=== PATIENT | female | born 1970 | race Hispanic/Latino ===

== ENCOUNTER 2017-05-04 14:44 | Inpatient (IN) | payer MEDICAID, SELFPAY ==
[2017-05-04 16:39] VITALS: BMI 28.2
[2017-05-04] MEDS ORDERED: Acetaminophen 325 MG TAB PO PRN (17:03)
[2017-05-04] MEDS ORDERED: Ondansetron ODT 4 MG TAB SL PRN (17:03)
[2017-05-04] MEDS ORDERED: Ondansetron HCl/PF 4 MG/2 ML Vial IVP PRN ×2 (17:03→17:16)
[2017-05-04] MEDS ORDERED: Dextrose 5% in Water 1,000 ML IV PRN (17:16)
[2017-05-04] MEDS ORDERED: Dextrose 50% Abboject 50 ML SYRINGE SLOW IVP PRN (17:16)
[2017-05-04] MEDS ORDERED: Ondansetron ODT 4 MG TAB PO PRN (17:16)
[2017-05-04] MEDS ORDERED: cloNIDine HCl 0.1 MG TAB PO PRN (17:16)
[2017-05-04] MEDS ORDERED: Acetaminophen 500 MG TAB PO PRN (17:16)
[2017-05-04] MEDS: Sodium Chloride 0.9% 1,000 ML IV SCH (17:51)
[2017-05-04] MEDS: HumaLOG 300 UNITS/3 ML VIAL SC PRN ×2 (17:51→20:57)
[2017-05-04] MEDS: Vancomycin HCl 1 GM in Premix Bag 1 BAG IVPB SCH (17:52)
[2017-05-04] MEDS: HYDROcodone/Acetaminophen 5/325 mg Tablet PO PRN (17:52)
[2017-05-04] MEDS: cefTRIAXone\\ROCEPHIN 2 GM in Sodium Chloride 0.9% 100 ML IVPB SCH (20:57)
[2017-05-04] MEDS: Famotidine 20 MG TAB PO SCH (20:57)
--- NOTE | 2017-05-04 23:23 | HP ---
DATE OF ADMISSION: 05/04/2017 PRIMARY CARE PROVIDER: Shahriar gilmore. CHIEF COMPLAINT: Left foot pain. HISTORY OF PRESENT ILLNESS: This is a 46-year-old female who presents to [facility] complaining of increasing left foot and lower leg swelling, redness, and pain over the last week. The patient states she stumped her left great toe at home on a hard object and disru pted the nail. The patient states that the nail was loose, so she pulled it off her great toe and n oted increasing swelling and redness over the next few days. The patient did not take any specific medications and hoped that the swelling and redness would dissipate on its own. The patient noted r edness migrating to her lower extremity with some blistering formation on the presley region. The ji ent denies any remote similar incidents in the past and denied any history of foot ulcerations. The patient does admit to a history of diabetes mellitus diagnosed approximately 10 years prior to this evaluation and treated with herbal remedies at home. The patient is unsure of her last tetanus but feels it is greater than 10 years. The patient does admit to associated chills and fever but did n ot quantitate this. The patient states that most of the pain is in the lower leg and sparing of the foot. In the emergency room, the patient underwent general evaluation including plain radiographs showing evidence of bony erosion of the distal tuft of the left great toe phalanx. The patient rece ived IV vancomycin and Zosyn as well as one liter of normal saline and 4 units of Humulin R. PAST MEDICAL HISTORY: 1. Diabetes mellitus type 2 suspected x10 years, treated with herbal remedies. 2. Hyperlipidemia, untreated. PAST SURGICAL HISTORY: Reviewed and negative. CURRENT MEDICATIONS: Herbal supplements, type and dose unknown. ALLERGIES: No known drug allergies. FAMILY HISTORY: No inheritable diseases per the patient report. SOCIAL HISTORY: Resides in [place], [place], formerly working with a [employer] farm. No current alcohol, tobacco, or illicit drug use. REVIEW OF SYSTEMS: The following complete review of systems was otherwise negative except as stated as per HPI: Constitutional: Weight loss or gain, ability to conduct usual activities. Skin: Rash, itching. Eyes: Double vision, pain. ENT/Mouth: Nose bleeding, neck stiffness, pain, tenderness. Cardiovascular: Palpitations, dyspnea on exertion, orthopnea. Respiratory: Shortness of breath, wheezing, cough, hemoptysis, fever, or night sweats. Gastrointestinal: Poor appetite, abdominal pain, heartburn, nausea, vomiting, constipation, or diar andres. Genitourinary: Urgency, frequency, dysuria, nocturia. Musculoskeletal: Pain, swelling. Neurologic/Psychiatric: Anxiety, depression. Allergy/Immunologic: Skin rash, bleeding tendency. PHYSICAL EXAMINATION: VITAL SIGNS: On admission, blood pressure 115/80, pulse 99, respiratory rate 16, temperature 98.2 d egrees Fahrenheit, O2 saturation 96% on room air. GENERAL APPEARANCE: This is a 46-year-old female, Luxembourgish speaking only, alert, responsive , in no acute distress. HEENT: Pupils are equal, round, and reactive to light and accommodation. Extraocular muscles are i ntact. No scleral icterus, no conjunctival injection. Nares patent. OP is clear. NECK: Supple, no cervical adenopathy, no thyromegaly, no carotid bruits, no JVD appreciated. Cervi oscar spine is with full active and passive range of motion. CHEST: Lungs are clear to auscultation bilaterally. CARDIOVASCULAR: S1, S2, without noted murmur. ABDOMEN: Obese, soft, nontender, nondistended. Bowel sounds are positive in all four quadrants. T here is no hepatosplenomegaly, no abdominal bruits, no rebound or guarding appreciated. EXTREMITIES: Left lower extremity with erythema to the lower third of the presley anteriorly extending into the dorsum of the foot. Clusters of ecchymosis and blistering with eruption noted on the ante rior presley. Positive edema. Positive calor and tenderness to palpation of the foot and left lower e xtremity. Pulses are diminished bilaterally at the dorsalis pedis, posterior tibial, and popliteal arteries. Left great toe with edema with nonblanchable white patch at the distal aspect of the phal anx. Positive tenderness to palpation. Lack of nail noted. NEUROLOGIC: Cranial nerves II through XII are grossly intact. No focal or lateralizing signs appre ciated. PERTINENT LABORATORY AND X-RAY FINDINGS: Sodium 133, potassium 4.6, chloride 99, CO2 of 23, BUN 15, creatinine 0.72, estimated GFR 86, glucose 380, last hemoglobin A1c on record 13.8, 05/2015. Calci um 9.4. LFTs within normal limits. Albumin 3.4. CBC showed a white blood cell count of 14.4, hemo globin 14, hematocrit 41, platelet count 370 with 77% neutrophils. Three views of the left foot samir ed 05/04/2017 showed osseous erosion involving the distal tuft of the left great toe consistent with osteomyelitis. ASSESSMENT AND PLAN: 1. Left lower extremity foot and great toe cellulitis with associated osteomyelitis. The patient w ill be admitted to the medical floor. We will continue vancomycin 1 gram IV q. 12 hours with additi onal Rocephin 2 grams IV q. 24 hours. We will consult General Surgery Service in the a.m. for evalu ation and consideration of surgical intervention. Consult Wound Care Service for local care. Pain control as clinically indicated. Update tetanus status prior to discharge. 2. Diabetes mellitus type 2, uncontrolled. We will check A1c level in the a.m. Insulin sliding sc milton moderate. ADA diet. 3. Leukocytosis with neutrophilia secondary to #1. We will repeat CBC in the a.m. and monitor clin ically with IV antibiotic therapy. 4. Prophylaxis. Sequential compression devices held due to left lower extremity edema. Lovenox 40 mg subcutaneously q. 24 hours. Tetanus vaccination prior to discharge. 5. CODE STATUS IS FULL. Surrogate medical decision maker is the patient's spouse, Freddie Nugetn.
[2017-05-05 04:41] LABS: Hemoglobin A1c 12.3 % (4.0-6.0)
[2017-05-05 05:11] LABS: Anion Gap 9 mmol/L (10-20); BUN (Urea Nitrogen) 9 mg/dL (7.0-18.7); Calc. Creatinine Clearance 129 mL/min (70-130); Calcium 8.2 mg/dL (7.8-10.44); Carbon Dioxide 24 mmol/L (22-29); Chloride 103 mmol/L (98-107); Estimated GFR-MDRD Greater than 90
[2017-05-05 05:16] LABS: Band 1 % (5-11); Hematocrit 36.4 % (36.0-47.0); Mean Platelet Volume 8.4 fL (7.4-10.4); Neutrophil 71 % (42-75); Red Blood Cell (RBC) Count 3.95 mill/uL (4.20-5.40); White Blood Cell (WBC) Count 15.7 thou/uL (4.8-10.8)
[2017-05-05] MEDS: HYDROcodone/Acetaminophen 5/325 mg Tablet PO PRN (05:18)
[2017-05-05] MEDS: Sodium Chloride 0.9% 1,000 ML IV SCH ×2 (05:19→14:36)
[2017-05-05] MEDS: Vancomycin HCl 1 GM in Premix Bag 1 BAG IVPB SCH ×2 (05:19→17:05)
[2017-05-05] MEDS: Famotidine 20 MG TAB PO SCH ×2 (07:37→20:22)
[2017-05-05] MEDS: Enoxaparin Sodium 40 MG/0.4 ML SYRINGE SC SCH (07:37)
[2017-05-05] MEDS ORDERED: Mag-Al 1200 mg/1200 mg/30 ML UDCUP PO PRN (07:55)
[2017-05-05] MEDS ORDERED: Diabetic Tussin 200 MG/10 ML UDCUP PO PRN (07:55)
[2017-05-05] MEDS ORDERED: Temazepam 15 MG CAP PO PRN (07:55)
[2017-05-05] MEDS ORDERED: Senokot 8.6 MG TAB PO PRN (07:55)
[2017-05-05] MEDS ORDERED: Sodium Chloride 0.65% Nasal 44 ML BOT EA NARE PRN (07:55)
[2017-05-05] MEDS ORDERED: Eucerin (Mineral Oil/Petrolatum,White) 30 gm Jar TOP PRN (07:55)
[2017-05-05] MEDS ORDERED: Loperamide HCl 2 MG CAP PO PRN (07:55)
[2017-05-05] MEDS ORDERED: Acetaminophen 325 MG TAB PO PRN (07:55)
[2017-05-05] MEDS ORDERED: Loratadine 10 MG TAB PO PRN (07:55)
[2017-05-05] MEDS ORDERED: Milk Of Magnesia 30 ML UDCUP PO PRN (07:55)
[2017-05-05] MEDS ORDERED: Artificial Tears 18 DROP/0.9 ML EA EYE PRN (07:55)
[2017-05-05] MEDS ORDERED: glyBURIDE 5 MG TAB PO SCH (08:00)
--- NOTE | 2017-05-05 12:41 | PDOC.PN ---
- Subjective Encounter Start Date: 05/05/17 Encounter Start Time: 10:10 -: old records requested/rev Patient seen and examined. No new complaints. No overnight events - Objective Resuscitation Status: Resuscitation Status FULL:Full Resuscitation MAR Reviewed: Yes Vital Signs & Weight: Vital Signs (12 hours) Temp Pulse Resp BP Pulse Ox 05/05/17 08:24 98.6 F 77 18 109/71 94 L 05/05/17 08:00 98.6 F 90 18 05/05/17 04:47 98.6 F 90 18 119/74 91 L Weight Admit Weight 154 lb 4.8 oz Weight 154 lb 4.8 oz I&O: 05/04/17 05/05/17 05/06/17 06:59 06:59 06:59 Intake Total 1643 Balance 1643 Result Diagrams: 05/05/17 03:21 05/05/17 03:21 Additional Labs: Accuchecks 05/05/17 05/05/17 05/04/17 12:02 04:47 20:50 POC Glucose 224 H 226 H 266 H 05/04/17 17:46 POC Glucose 293 H Phys Exam - Physical Examination Constitutional: NAD HEENT: PERRLA, moist MMs, sclera anicteric Neck: no JVD, supple Respiratory: no wheezing, no rales, no rhonchi Cardiovascular: RRR, no significant murmur, no rub Gastrointestinal: soft, non-tender, no distention, positive bowel sounds Musculoskeletal: no edema, pulses present left leg cellulitis with abscess Neurological: non-focal, normal sensation, moves all 4 limbs Psychiatric: normal affect, A&O x 3 Skin: no rash, normal turgor Dx/Plan (1) Cellulitis of left leg Code(s): L03.116 - CELLULITIS OF LEFT LOWER LIMB Status: Acute (2) Sepsis Code(s): A41.9 - SEPSIS, UNSPECIFIED ORGANISM Status: Acute (3) Diabetes type 2, controlled Code(s): E11.9 - TYPE 2 DIABETES MELLITUS WITHOUT COMPLICATIONS Status: Chronic - Plan cont current plan of care, continue antibiotics * will start metformin and glyburide for diabetes * continue vancomycin and rocephin * medication reviewed as below * medically stable with current treatment * symptomatic treatment * pain control * surgeon consulted. Review of Systems - Review of Systems ENT: negative: Ear Pain, Ear Discharge, Nose Pain, Nose Discharge, Nose Congestion, Mouth Pain, Mouth Swelling, Throat Pain, Throat Swelling, Other Respiratory: negative: Cough, Dry, Shortness of Breath, Hemoptysis, SOB with Excertion, Pleuritic Pain, Sputum, Wheezing Cardiovascular: negative: Chest Pain, Palpitations, Orthopnea, Paroxysmal Noc. Dyspnea, Edema, Light Headedness, Other Gastrointestinal: negative: Nausea, Vomiting, Abdominal Pain, Diarrhea, Constipation, Melena, Hematochezia, Other Genitourinary: negative: Dysuria, Frequency, Incontinence, Hematuria, Retention , Other Musculoskeletal: Leg Pain. negative: Neck Pain, Shoulder Pain, Arm Pain, Back Pain, Hand Pain, Foot Pain, Other Skin: negative: Rash, Lesions, Ronnie, Bruising, Other - Medications/Allergies Allergies/Adverse Reactions: Allergies Allergy/AdvReac Type Severity Reaction Status Date / Time No Known Allergies Allergy Verified 05/04/17 16:32 Medications: Current Medications Acetaminophen (Tylenol) 650 mg PO Q4H PRN PRN Reason: Headache/Fever or Mild Pain Hydrocodone Bitart/Acetaminophen ([place] 5/325) 1 tab PO Q4H PRN PRN Reason: Moderate Pain (4-6) Last Admin: 05/05/17 05:18 Dose: 1 tab Al Hydroxide/Mg Hydroxide (Maalox) 15 ml PO Q4H PRN PRN Reason: Heartburn or Indigestion Artificial Tears (Tears Naturale) 0 drop EA EYE PRN PRN PRN Reason: Dry Eyes Clonidine HCl (Catapres) 0.1 mg PO Q4H PRN PRN Reason: Systolic BP > 180 Dextrose/Water (Dextrose 50%) 25 gm SLOW IVP PRN PRN PRN Reason: Hypoglycemia Enoxaparin Sodium (Lovenox) 40 mg SC 0900 [facility] Last Admin: 05/05/17 07:37 Dose: Not Given Famotidine (Pepcid) 20 mg PO BID [facility] Last Admin: 05/05/17 07:37 Dose: Not Given Glucagon (Glucagon) 1 mg IM PRN PRN PRN Reason: Hypoglycemia Glyburide (Diabeta) 5 mg PO QAM-[facility] Guaifenesin (Robitussin Sf) 200 mg PO Q4H PRN PRN Reason: Cough Hydralazine HCl (Apresoline) 10 mg SLOW IVP Q4H PRN PRN Reason: Systolic BP > 180 Dextrose/Water (D5w) 1,000 mls @ 0 mls/hr IV .Q0M PRN; As Directed PRN Reason: Hypoglycemia Sodium Chloride (Normal Saline 0.9%) 1,000 mls @ 100 mls/hr IV .Q10H [facility] Last Admin: 05/05/17 05:19 Dose: 1,000 mls Vancomycin HCl 1 gm/ Device 200 mls @ 200 mls/hr IVPB 0600,1800 [facility] Last Admin: 05/05/17 05:19 Dose: 200 mls Ceftriaxone Sodium 2 gm/ (Sodium Chloride) 100 mls @ 200 mls/hr IVPB Q24HR [facility] Last Admin: 05/04/17 20:57 Dose: 100 mls Insulin Human Lispro (Humalog) 0 units SC .MODERATE SLIDING SC PRN PRN Reason: Moderate Correctional Scale Last Admin: 05/04/17 17:51 Dose: 6 unit Insulin Human Lispro (Humalog) 0 units SC .BEDTIME SLIDING SC PRN PRN Reason: Bedtime Correctional Scale Last Admin: 05/04/17 20:57 Dose: 3 unit Loperamide HCl (Imodium) 2 mg PO PRN PRN PRN Reason: Diarrhea/Loose Stools Loratadine (Claritin) 10 mg PO DAILYPRN PRN PRN Reason: Sinus Symptoms Magnesium Hydroxide (Milk Of Magnesium) 30 ml PO DAILYPRN PRN PRN Reason: Constipation Metformin HCl (Glucophage) 1,000 mg PO BID-[facility] Mineral Oil/White Petrolatum (Eucerin Cream) 0 gm TOP BIDPRN PRN PRN Reason: Dry Skin Morphine Sulfate (Morphine Sulfate) 4 mg SLOW IVP Q4H PRN PRN Reason: Severe Pain (7-10) Ondansetron HCl (Zofran Odt) 4 mg PO Q6H PRN PRN Reason: Nausea/Vomiting Ondansetron HCl (Zofran) 4 mg IVP Q6H PRN PRN Reason: Nausea/Vomiting Senna (Senokot) 2 tab PO HSPRN PRN PRN Reason: Constipation Sodium Chloride ([place] Nasal [place] 0.65%) 0 ml EA NARE QIDPRN PRN PRN Reason: Nasal Congestion Temazepam (Restoril) 15 mg PO HSPRN PRN PRN Reason: Insomnia
--- NOTE | 2017-05-05 15:44 | HP ---
HISTORY OF PRESENT ILLNESS: Ms. Arlyn Nugent is a 46-year-old female who lives in [place] the [employer]. She injured her left great toe on some furniture, had nail problems, rem avril that herself using her fingernails and has developed an infection extending to her anterior ank le and lower leg, admitted by hospitalist, placed on vancomycin and Zosyn. Patient is a non-diabeti c, but treats her disease holistically without medications. Hemoglobin A1c on admission was 12.3. Renal function is normal as noted above on vancomycin and Zosyn. Patient had an x-ray of her left f oot, noting osteomyelitis of the distal phalanx. Cultures obtained blood negative to date. Culture s from her toe, blood cultures negative to date. On admission, glucose was 293. ALLERGIES: None. TOBACCO: None. ALCOHOL: None. MEDICATIONS: None. PAST SURGICAL HISTORY: Noncontributory. PAST MEDICAL HISTORY: Noncontributory. REVIEW OF SYSTEMS: Ten-point noncontributory. Kazakh speaking only, chief payroll clerk was used. PHYSICAL EXAMINATION: VITAL SIGNS: Height 5 feet, weighs 254 pounds. BMI 28, temperature 98.6, pulse 77 and blood pressu re 109/71. HEAD, EYES, EARS, NOSE AND THROAT: Unremarkable. LUNGS: Clear to auscultation. CARDIAC: Regular rate and rhythm without murmur or gallop. ABDOMEN: Soft and nontender. No masses. EXTREMITIES: Palpable femoral, popliteal pedal pulses bilaterally. Hair on her toes and feet. The left great toe is markedly swollen, the great toenail is gone. On compression of the great toe, th ere is pus exuding from the medial aspect through multiple punctate openings. Over the dorsum of he r ankle and extending up the lower third of her leg above the ankle, there is cellulitis and indurat ion. There are multiple blisters, one of which has purulent material beneath it. There is necrotic soft tissue beneath eroded blister above the ankle. There is no significant fluctuance appreciated . LABORATORY DATA: Sodium 132, potassium 3.9, BUN 9, creatinine 0.59, GFR greater than 90, glucose 22 4 today and hemoglobin A1c 12.3. White count 15 and hemoglobin 12. ASSESSMENT AND PLAN: 1. Diabetic infection, left great toe. We would recommend amputation of left great toe through the proximal phalanx. We will arrange [facility]. Physical therapy consult for weight bear is tolerating the left foot. She is n.p.o. tod ay. Plan amputation of the left great toe and debridement of blisters of the left leg as indicated. She understands the risks and benefits and consents. 2. Diabetes mellitus, treated holistically, noncompliant.
[2017-05-05] MEDS: HumaLOG 300 UNITS/3 ML VIAL SC PRN ×2 (17:09→20:22)
[2017-05-05] MEDS: cefTRIAXone\\ROCEPHIN 2 GM in Sodium Chloride 0.9% 100 ML IVPB SCH (20:22)
[2017-05-06] MEDS: Sodium Chloride 0.9% 1,000 ML IV SCH ×2 (04:39→06:34)
[2017-05-06 05:34] LABS: #Eosinphils 0.1 thou/uL (0.0-0.7); #Lymphocytes 2.2 thou/uL (1.20-3.40); #Monocytes 1.1 thou/uL (0.11-0.59); #Neutrophils 8.5 thou/uL (1.40-6.50); %Basophils 0.1 % (0.0-1.0); %Eosinophils 1.1 % (0.0-10.0); %Lymphocytes 18.7 % (21.0-51.0); Hematocrit 41.2 % (36.0-47.0); Mean Platelet Volume 7.9 fL (7.4-10.4); Red Blood Cell (RBC) Count 4.49 mill/uL (4.20-5.40)
[2017-05-06 05:56] LABS: ALT (SGPT) 15 U/L (8-55); AST (SGOT) 18 U/L (5-34); Alkaline Phosphatase 116 U/L (40-150); Anion Gap 8 mmol/L (10-20); BUN (Urea Nitrogen) 6 mg/dL (7.0-18.7); Bilirubin, Total 0.4 mg/dL (0.2-1.2); Calc. Creatinine Clearance 121 mL/min (70-130); Calcium 8.5 mg/dL (7.8-10.44); Carbon Dioxide 27 mmol/L (22-29); Chloride 102 mmol/L (98-107); Estimated GFR-MDRD Greater than 90; Protein, Total 6.8 g/dL (6.0-8.3)
[2017-05-06 05:57] LABS: Vancomycin, Trough 4.5 ug/mL
--- NOTE | 2017-05-06 06:17 | EKG ---
Test Reason : PREOP Blood Pressure : / mmHG Vent. Rate : 098 BPM Atrial Rate : 098 BPM P-R Int : 128 ms QRS Dur : 070 ms QT Int : 344 ms P-R-T Axes : 033 -01 007 degrees QTc Int : 439 ms Normal sinus rhythm Normal ECG No previous ECGs available Confirmed by JOSETTE SARKAR ([id number]) on 05/06/2017 6:16:59 AM Referred By: LORENZO Confirmed By:JOSETTE SARKAR
[2017-05-06] MEDS: Vancomycin HCl 1 GM in Premix Bag 1 BAG IVPB SCH ×4 (06:33→23:12)
[2017-05-06] MEDS: glyBURIDE 5 MG TAB PO SCH (09:06)
[2017-05-06] MEDS: Famotidine 20 MG TAB PO SCH ×2 (09:06→20:48)
[2017-05-06] MEDS: Enoxaparin Sodium 40 MG/0.4 ML SYRINGE SC SCH (09:08)
[2017-05-06] MEDS: HumaLOG 300 UNITS/3 ML VIAL SC PRN ×2 (11:49→17:24)
--- NOTE | 2017-05-06 13:25 | PDOC.PN ---
- Subjective Encounter Start Date: 05/06/17 Encounter Start Time: 09:20 -: old records requested/rev pt does not want toe amputation, no fever, has leg pain - Objective Resuscitation Status: Resuscitation Status FULL:Full Resuscitation MAR Reviewed: Yes Vital Signs & Weight: Vital Signs (12 hours) Temp Pulse Resp BP Pulse Ox 05/06/17 07:34 99.6 F 88 16 111/73 94 L 05/06/17 04:00 98.6 F 79 18 112/71 97 Weight Admit Weight 154 lb 4.8 oz Weight 154 lb 4.8 oz I&O: 05/05/17 05/06/17 05/07/17 06:59 06:59 06:59 Intake Total 1643 1702 Balance 1643 1702 Result Diagrams: 05/06/17 04:56 05/06/17 04:56 Additional Labs: Accuchecks 05/06/17 05/06/17 05/05/17 11:11 05:15 19:51 POC Glucose 271 H 222 H 241 H 05/05/17 17:05 POC Glucose 263 H Phys Exam - Physical Examination Constitutional: NAD HEENT: PERRLA, moist MMs, sclera anicteric Neck: no JVD, supple Respiratory: no wheezing, no rales, no rhonchi Cardiovascular: RRR, no significant murmur, no rub Gastrointestinal: soft, non-tender, no distention, positive bowel sounds left leg with abscess, great toe wound Neurological: non-focal, normal sensation, moves all 4 limbs Psychiatric: normal affect, A&O x 3 Skin: no rash, normal turgor Dx/Plan (1) Cellulitis of left leg Code(s): L03.116 - CELLULITIS OF LEFT LOWER LIMB Status: Acute (2) Sepsis Code(s): A41.9 - SEPSIS, UNSPECIFIED ORGANISM Status: Acute (3) Diabetes type 2, controlled Code(s): E11.9 - TYPE 2 DIABETES MELLITUS WITHOUT COMPLICATIONS Status: Chronic - Plan cont current plan of care, continue antibiotics * pt declined surgical approach * wanted to continue IV antibiotics * follow on culture * medically she needs more iv antibiotics * pain controlled * medication reviewed as below * symptomatic treatment. * continue vancomycin and rocephin Review of Systems - Review of Systems Eyes: negative: Pain, Vision Change, Conjunctivae Inflammation, Eyelid Inflammation, Redness, Other ENT: negative: Ear Pain, Ear Discharge, Nose Pain, Nose Discharge, Nose Congestion, Mouth Pain, Mouth Swelling, Throat Pain, Throat Swelling, Other Respiratory: negative: Cough, Dry, Shortness of Breath, Hemoptysis, SOB with Excertion, Pleuritic Pain, Sputum, Wheezing Cardiovascular: negative: Chest Pain, Palpitations, Orthopnea, Paroxysmal Noc. Dyspnea, Edema, Light Headedness, Other Gastrointestinal: negative: Nausea, Vomiting, Abdominal Pain, Diarrhea, Constipation, Melena, Hematochezia, Other Genitourinary: negative: Dysuria, Frequency, Incontinence, Hematuria, Retention , Other Musculoskeletal: Leg Pain. negative: Neck Pain, Shoulder Pain, Arm Pain, Back Pain, Hand Pain, Foot Pain, Other - Medications/Allergies Allergies/Adverse Reactions: Allergies Allergy/AdvReac Type Severity Reaction Status Date / Time No Known Allergies Allergy Verified 05/04/17 16:32 Medications: Current Medications Acetaminophen (Tylenol) 650 mg PO Q4H PRN PRN Reason: Headache/Fever or Mild Pain Hydrocodone Bitart/Acetaminophen ([place] 5/325) 1 tab PO Q4H PRN PRN Reason: Moderate Pain (4-6) Last Admin: 05/05/17 05:18 Dose: 1 tab Al Hydroxide/Mg Hydroxide (Maalox) 15 ml PO Q4H PRN PRN Reason: Heartburn or Indigestion Artificial Tears (Tears Naturale) 0 drop EA EYE PRN PRN PRN Reason: Dry Eyes Clonidine HCl (Catapres) 0.1 mg PO Q4H PRN PRN Reason: Systolic BP > 180 Dextrose/Water (Dextrose 50%) 25 gm SLOW IVP PRN PRN PRN Reason: Hypoglycemia Enoxaparin Sodium (Lovenox) 40 mg SC 0900 [facility] Last Admin: 05/06/17 09:08 Dose: 40 mg Famotidine (Pepcid) 20 mg PO BID [facility] Last Admin: 05/06/17 09:06 Dose: 20 mg Glucagon (Glucagon) 1 mg IM PRN PRN PRN Reason: Hypoglycemia Glyburide (Diabeta) 5 mg PO QAM-[facility] Last Admin: 05/06/17 09:06 Dose: 5 mg Guaifenesin (Robitussin Sf) 200 mg PO Q4H PRN PRN Reason: Cough Hydralazine HCl (Apresoline) 10 mg SLOW IVP Q4H PRN PRN Reason: Systolic BP > 180 Dextrose/Water (D5w) 1,000 mls @ 0 mls/hr IV .Q0M PRN; As Directed PRN Reason: Hypoglycemia Sodium Chloride (Normal Saline 0.9%) 1,000 mls @ 100 mls/hr IV .Q10H [facility] Last Admin: 05/06/17 06:34 Dose: 1,000 mls Ceftriaxone Sodium 2 gm/ (Sodium Chloride) 100 mls @ 200 mls/hr IVPB Q24HR [facility] Last Admin: 05/05/17 20:22 Dose: 100 mls Vancomycin HCl 1 gm/ Device 200 mls @ 200 mls/hr IVPB Q8HR [facility] Last Admin: 05/06/17 06:33 Dose: 200 mls Insulin Human Lispro (Humalog) 0 units SC .MODERATE SLIDING SC PRN PRN Reason: Moderate Correctional Scale Last Admin: 05/06/17 11:49 Dose: 6 unit Insulin Human Lispro (Humalog) 0 units SC .BEDTIME SLIDING SC PRN PRN Reason: Bedtime Correctional Scale Last Admin: 05/05/17 20:22 Dose: 2 unit Loperamide HCl (Imodium) 2 mg PO PRN PRN PRN Reason: Diarrhea/Loose Stools Loratadine (Claritin) 10 mg PO DAILYPRN PRN PRN Reason: Sinus Symptoms Magnesium Hydroxide (Milk Of Magnesium) 30 ml PO DAILYPRN PRN PRN Reason: Constipation Metformin HCl (Glucophage) 1,000 mg PO BID-[facility] Last Admin: 05/06/17 09:05 Dose: 1,000 mg Mineral Oil/White Petrolatum (Eucerin Cream) 0 gm TOP BIDPRN PRN PRN Reason: Dry Skin Morphine Sulfate (Morphine Sulfate) 4 mg SLOW IVP Q4H PRN PRN Reason: Severe Pain (7-10) Ondansetron HCl (Zofran Odt) 4 mg PO Q6H PRN PRN Reason: Nausea/Vomiting Ondansetron HCl (Zofran) 4 mg IVP Q6H PRN PRN Reason: Nausea/Vomiting Senna (Senokot) 2 tab PO HSPRN PRN PRN Reason: Constipation Sodium Chloride ([place] Nasal [place] 0.65%) 0 ml EA NARE QIDPRN PRN PRN Reason: Nasal Congestion Temazepam (Restoril) 15 mg PO HSPRN PRN PRN Reason: Insomnia
--- NOTE | 2017-05-06 17:10 | PRG ---
DATE OF SERVICE: 05/06/2017 SUBJECTIVE: Ms. Nugent is seen today. She has a left great toe osteomyelitis with a very edematou s great toe. She has multiple punctate opening surrounding the wound with purulent drainage. Radio graphs verify severe osteomyelitis of the distal phalanx. She has cellulitis of the distal leg. I have recommended that she undergo amputation of left great toe through the proximal phalanx; however , last night she refused surgery, so she talked to her family. Since that time she has talked to he r family and patient does not desire surgical intervention. She wants to visit a family member for nonsurgical and non-medical treatment. The patient on this admission has recalled and has been dex jarret her diabetes without medications holistically and has hemoglobin A1c of 12.5. I communicated vi a a package delivery room service runner the importance of taking care of this problem, avoiding further extension of the infe ction that might require further amputation of her foot or leg. Despite this, she wishes to avoid s urgery. At this point, I will see her as needed and I will leave treatment to the medical service. Would recommend continued intravenous antibiotics and discharged home on oral antibiotics. Please call if I can be of further assistance.
[2017-05-06] MEDS: cefTRIAXone\\ROCEPHIN 2 GM in Sodium Chloride 0.9% 100 ML IVPB SCH (20:47)
[2017-05-06] MEDS: HYDROcodone/Acetaminophen 5/325 mg Tablet PO PRN (20:48)
[2017-05-07 05:33] LABS: Vancomycin, Trough 11.5 ug/mL
[2017-05-07] MEDS: Sodium Chloride 0.9% 1,000 ML IV SCH ×4 (06:37→22:14)
[2017-05-07] MEDS: Vancomycin HCl 1.25 GM in Sodium Chloride 0.9% 250 ML 250 ML IVPB SCH ×3 (06:37→22:14)
[2017-05-07] MEDS: HumaLOG 300 UNITS/3 ML VIAL SC PRN (06:38)
[2017-05-07] MEDS: Vancomycin HCl 1 GM in Premix Bag 1 BAG IVPB SCH (07:16)
[2017-05-07] MEDS: Famotidine 20 MG TAB PO SCH ×2 (08:27→20:00)
[2017-05-07] MEDS: Enoxaparin Sodium 40 MG/0.4 ML SYRINGE SC SCH (08:27)
[2017-05-07] MEDS: glyBURIDE 5 MG TAB PO SCH (08:27)
--- NOTE | 2017-05-07 13:38 | PDOC.PN ---
- Subjective Encounter Start Date: 05/07/17 Encounter Start Time: 11:15 Subjective: no pain -: feels better - Objective Resuscitation Status: Resuscitation Status FULL:Full Resuscitation MAR Reviewed: Yes Vital Signs & Weight: Vital Signs (12 hours) Temp Pulse Resp BP Pulse Ox 05/07/17 08:00 98.6 F 92 16 95 05/07/17 07:50 98.6 F 92 16 113/72 93 L Weight Admit Weight 154 lb 4.8 oz Weight 154 lb 4.8 oz I&O: 05/06/17 05/07/17 05/08/17 06:59 06:59 06:59 Intake Total 1702 4093 240 Balance 1702 4093 240 Result Diagrams: 05/06/17 04:56 05/06/17 04:56 Additional Labs: Accuchecks 05/07/17 05/07/17 05/06/17 11:35 05:03 19:40 POC Glucose 184 H 226 H 106 05/06/17 15:57 POC Glucose 223 H Phys Exam - Physical Examination HEENT: PERRLA, moist MMs Neck: no JVD, supple Respiratory: no wheezing, no rales Cardiovascular: RRR, no significant murmur Gastrointestinal: soft, non-tender, positive bowel sounds Musculoskeletal: pulses present left LE is edematous, has multiple purulent ulcers Neurological: non-focal, moves all 4 limbs Psychiatric: A&O x 3 Dx/Plan (1) Cellulitis of left leg Code(s): L03.116 - CELLULITIS OF LEFT LOWER LIMB Status: Acute (2) Sepsis Code(s): A41.9 - SEPSIS, UNSPECIFIED ORGANISM Status: Acute Qualifiers: Sepsis type: sepsis due to unspecified organism Qualified Code(s): A41.9 - Sepsis, unspecified organism (3) DM type 2 (diabetes mellitus, type 2) Status: Chronic Qualifiers: Diabetes mellitus complication status: with hyperglycemia Diabetes mellitus technician terminal and repeater insulin use: without technician terminal and repeater use Qualified Code(s): E11.65 - Type 2 diabetes mellitus with hyperglycemia - Plan pt wants med mgmt of her ulcers -: wound care to do local cleansing and deroofing of her ulcers -: is on vanc and ceftriaxone -: on metformin and glyburide for diabetes * . Review of Systems - Medications/Allergies Allergies/Adverse Reactions: Allergies Allergy/AdvReac Type Severity Reaction Status Date / Time No Known Allergies Allergy Verified 05/04/17 16:32 Medications: Current Medications Acetaminophen (Tylenol) 650 mg PO Q4H PRN PRN Reason: Headache/Fever or Mild Pain Hydrocodone Bitart/Acetaminophen ([place] 5/325) 1 tab PO Q4H PRN PRN Reason: Moderate Pain (4-6) Last Admin: 05/06/17 20:48 Dose: 1 tab Al Hydroxide/Mg Hydroxide (Maalox) 15 ml PO Q4H PRN PRN Reason: Heartburn or Indigestion Artificial Tears (Tears Naturale) 0 drop EA EYE PRN PRN PRN Reason: Dry Eyes Clonidine HCl (Catapres) 0.1 mg PO Q4H PRN PRN Reason: Systolic BP > 180 Dextrose/Water (Dextrose 50%) 25 gm SLOW IVP PRN PRN PRN Reason: Hypoglycemia Enoxaparin Sodium (Lovenox) 40 mg SC 0900 [facility] Last Admin: 05/07/17 08:27 Dose: 40 mg Famotidine (Pepcid) 20 mg PO BID [facility] Last Admin: 05/07/17 08:27 Dose: 20 mg Glucagon (Glucagon) 1 mg IM PRN PRN PRN Reason: Hypoglycemia Glyburide (Diabeta) 5 mg PO QAM-WM [facility] Last Admin: 05/07/17 08:27 Dose: 5 mg Guaifenesin (Robitussin Sf) 200 mg PO Q4H PRN PRN Reason: Cough Hydralazine HCl (Apresoline) 10 mg SLOW IVP Q4H PRN PRN Reason: Systolic BP > 180 Dextrose/Water (D5w) 1,000 mls @ 0 mls/hr IV .Q0M PRN; As Directed PRN Reason: Hypoglycemia Sodium Chloride (Normal Saline 0.9%) 1,000 mls @ 100 mls/hr IV .Q10H [facility] Last Admin: 05/07/17 07:31 Dose: Not Given Ceftriaxone Sodium 2 gm/ (Sodium Chloride) 100 mls @ 200 mls/hr IVPB Q24HR [facility] Last Admin: 05/06/17 20:47 Dose: 100 mls Vancomycin HCl 1.25 gm/ Sodium (Chloride) 250 mls @ 166.667 mls/hr IVPB Q8HR [facility] Last Admin: 05/07/17 06:37 Dose: 250 mls Insulin Human Lispro (Humalog) 0 units SC .MODERATE SLIDING SC PRN PRN Reason: Moderate Correctional Scale Last Admin: 05/07/17 06:38 Dose: 4 unit Insulin Human Lispro (Humalog) 0 units SC .BEDTIME SLIDING SC PRN PRN Reason: Bedtime Correctional Scale Last Admin: 05/05/17 20:22 Dose: 2 unit Loperamide HCl (Imodium) 2 mg PO PRN PRN PRN Reason: Diarrhea/Loose Stools Loratadine (Claritin) 10 mg PO DAILYPRN PRN PRN Reason: Sinus Symptoms Magnesium Hydroxide (Milk Of Magnesium) 30 ml PO DAILYPRN PRN PRN Reason: Constipation Metformin HCl (Glucophage) 1,000 mg PO BID-[facility] Last Admin: 05/07/17 08:27 Dose: 1,000 mg Mineral Oil/White Petrolatum (Eucerin Cream) 0 gm TOP BIDPRN PRN PRN Reason: Dry Skin Morphine Sulfate (Morphine Sulfate) 4 mg SLOW IVP Q4H PRN PRN Reason: Severe Pain (7-10) Ondansetron HCl (Zofran Odt) 4 mg PO Q6H PRN PRN Reason: Nausea/Vomiting Ondansetron HCl (Zofran) 4 mg IVP Q6H PRN PRN Reason: Nausea/Vomiting Senna (Senokot) 2 tab PO HSPRN PRN PRN Reason: Constipation Sodium Chloride ([place] Nasal [place] 0.65%) 0 ml EA NARE QIDPRN PRN PRN Reason: Nasal Congestion Temazepam (Restoril) 15 mg PO HSPRN PRN PRN Reason: Insomnia
[2017-05-07] MEDS: cefTRIAXone\\ROCEPHIN 2 GM in Sodium Chloride 0.9% 100 ML IVPB SCH (19:59)
[2017-05-07] MEDS: HYDROcodone/Acetaminophen 5/325 mg Tablet PO PRN (22:15)
[2017-05-08 05:08] LABS: #Eosinphils 0.2 thou/uL (0.0-0.7); #Lymphocytes 2.4 thou/uL (1.20-3.40); #Monocytes 1.3 thou/uL (0.11-0.59); #Neutrophils 11.2 thou/uL (1.40-6.50); %Basophils 0.2 % (0.0-1.0); %Monocytes 8.4 % (0.0-10.0); Hematocrit 33.7 % (36.0-47.0); Mean Platelet Volume 7.2 fL (7.4-10.4); Red Blood Cell (RBC) Count 3.66 mill/uL (4.20-5.40)
[2017-05-08] MEDS: Vancomycin HCl 1.25 GM in Sodium Chloride 0.9% 250 ML 250 ML IVPB SCH ×3 (05:37→21:20)
[2017-05-08] MEDS: HYDROcodone/Acetaminophen 5/325 mg Tablet PO PRN (05:46)
[2017-05-08 05:47] LABS: Vancomycin, Trough 12.8 ug/mL
[2017-05-08 05:51] LABS: Anion Gap 8 mmol/L (10-20); BUN (Urea Nitrogen) 6 mg/dL (7.0-18.7); Calc. Creatinine Clearance 131 mL/min (70-130); Calcium 8.2 mg/dL (7.8-10.44); Carbon Dioxide 27 mmol/L (22-29); Chloride 103 mmol/L (98-107); Estimated GFR-MDRD Greater than 90
[2017-05-08] MEDS: glyBURIDE 5 MG TAB PO SCH (09:55)
[2017-05-08] MEDS: Piperacillin/Tazobactam 4.5 GM in Sodium Chloride 0.9% 100 ML IVPB SCH ×2 (09:55→17:40)
[2017-05-08] MEDS: Famotidine 20 MG TAB PO SCH ×2 (09:56→21:19)
[2017-05-08] MEDS: Enoxaparin Sodium 40 MG/0.4 ML SYRINGE SC SCH (09:56)
[2017-05-08] MEDS: Sodium Chloride 0.9% 1,000 ML IV SCH ×2 (09:56→21:28)
--- NOTE | 2017-05-08 14:00 | PDOC.PN ---
- Subjective Encounter Start Date: 05/08/17 Encounter Start Time: 12:20 Subjective: feels better - Objective Resuscitation Status: Resuscitation Status FULL:Full Resuscitation MAR Reviewed: Yes Vital Signs & Weight: Vital Signs (12 hours) Temp Pulse Resp BP Pulse Ox 05/08/17 11:27 98.9 F 91 20 119/78 93 L 05/08/17 08:00 98.9 F 91 20 05/08/17 07:39 98.3 F 83 18 105/68 94 L Weight Admit Weight 154 lb 4.8 oz Weight 154 lb 4.8 oz I&O: 05/07/17 05/08/17 05/09/17 06:59 06:59 06:59 Intake Total 4093 3500 Balance 4093 3500 Result Diagrams: 05/08/17 04:59 05/08/17 04:59 Additional Labs: Accuchecks 05/08/17 05/08/17 05/07/17 11:13 05:19 20:13 POC Glucose 261 H 176 H 210 H 05/07/17 15:56 POC Glucose 190 H Phys Exam - Physical Examination HEENT: PERRLA, moist MMs Neck: no JVD, supple Respiratory: no wheezing, no rales, no rhonchi Cardiovascular: RRR, no significant murmur Gastrointestinal: soft, non-tender, positive bowel sounds Musculoskeletal: pulses present left leg ulcers in dressing Neurological: non-focal, moves all 4 limbs Psychiatric: A&O x 3 Dx/Plan (1) Cellulitis of left leg Code(s): L03.116 - CELLULITIS OF LEFT LOWER LIMB Status: Acute (2) Sepsis Code(s): A41.9 - SEPSIS, UNSPECIFIED ORGANISM Status: Acute Qualifiers: Sepsis type: sepsis due to unspecified organism Qualified Code(s): A41.9 - Sepsis, unspecified organism (3) DM type 2 (diabetes mellitus, type 2) Status: Chronic Qualifiers: Diabetes mellitus complication status: with hyperglycemia Diabetes mellitus long chain beamer insulin use: without long chain beamer use Qualified Code(s): E11.65 - Type 2 diabetes mellitus with hyperglycemia - Plan wbc still around 15 -: tmax of 99.6 -: is on vanc and zosyn -: d/w wound care * . Review of Systems - Medications/Allergies Allergies/Adverse Reactions: Allergies Allergy/AdvReac Type Severity Reaction Status Date / Time No Known Allergies Allergy Verified 05/04/17 16:32 Medications: Current Medications Acetaminophen (Tylenol) 650 mg PO Q4H PRN PRN Reason: Headache/Fever or Mild Pain Hydrocodone Bitart/Acetaminophen ([place] 5/325) 1 tab PO Q4H PRN PRN Reason: Moderate Pain (4-6) Last Admin: 05/08/17 05:46 Dose: 1 tab Al Hydroxide/Mg Hydroxide (Maalox) 15 ml PO Q4H PRN PRN Reason: Heartburn or Indigestion Artificial Tears (Tears Naturale) 0 drop EA EYE PRN PRN PRN Reason: Dry Eyes Clonidine HCl (Catapres) 0.1 mg PO Q4H PRN PRN Reason: Systolic BP > 180 Dextrose/Water (Dextrose 50%) 25 gm SLOW IVP PRN PRN PRN Reason: Hypoglycemia Enoxaparin Sodium (Lovenox) 40 mg SC 0900 [facility] Last Admin: 05/08/17 09:56 Dose: 40 mg Famotidine (Pepcid) 20 mg PO BID [facility] Last Admin: 05/08/17 09:56 Dose: 20 mg Glucagon (Glucagon) 1 mg IM PRN PRN PRN Reason: Hypoglycemia Glyburide (Diabeta) 5 mg PO QAM-WM [facility] Last Admin: 05/08/17 09:55 Dose: 5 mg Guaifenesin (Robitussin Sf) 200 mg PO Q4H PRN PRN Reason: Cough Hydralazine HCl (Apresoline) 10 mg SLOW IVP Q4H PRN PRN Reason: Systolic BP > 180 Dextrose/Water (D5w) 1,000 mls @ 0 mls/hr IV .Q0M PRN; As Directed PRN Reason: Hypoglycemia Sodium Chloride (Normal Saline 0.9%) 1,000 mls @ 100 mls/hr IV .Q10H [facility] Last Admin: 05/08/17 09:56 Dose: Not Given Vancomycin HCl 1.25 gm/ Sodium (Chloride) 250 mls @ 166.667 mls/hr IVPB Q8HR [facility] Last Admin: 05/08/17 05:37 Dose: 250 mls Piperacillin Sod/Tazobactam (Sod 4.5 gm/ Sodium Chloride) 100 mls @ 200 mls/hr IVPB 0100,0900,1700 [facility] Last Admin: 05/08/17 09:55 Dose: 100 mls Insulin Human Lispro (Humalog) 0 units SC .MODERATE SLIDING SC PRN PRN Reason: Moderate Correctional Scale Last Admin: 05/07/17 06:38 Dose: 4 unit Insulin Human Lispro (Humalog) 0 units SC .BEDTIME SLIDING SC PRN PRN Reason: Bedtime Correctional Scale Last Admin: 05/05/17 20:22 Dose: 2 unit Loperamide HCl (Imodium) 2 mg PO PRN PRN PRN Reason: Diarrhea/Loose Stools Loratadine (Claritin) 10 mg PO DAILYPRN PRN PRN Reason: Sinus Symptoms Magnesium Hydroxide (Milk Of Magnesium) 30 ml PO DAILYPRN PRN PRN Reason: Constipation Metformin HCl (Glucophage) 1,000 mg PO BID-[facility] Last Admin: 05/08/17 09:55 Dose: 1,000 mg Mineral Oil/White Petrolatum (Eucerin Cream) 0 gm TOP BIDPRN PRN PRN Reason: Dry Skin Morphine Sulfate (Morphine Sulfate) 4 mg SLOW IVP Q4H PRN PRN Reason: Severe Pain (7-10) Ondansetron HCl (Zofran Odt) 4 mg PO Q6H PRN PRN Reason: Nausea/Vomiting Ondansetron HCl (Zofran) 4 mg IVP Q6H PRN PRN Reason: Nausea/Vomiting Senna (Senokot) 2 tab PO HSPRN PRN PRN Reason: Constipation Sodium Chloride ([place] Nasal [place] 0.65%) 0 ml EA NARE QIDPRN PRN PRN Reason: Nasal Congestion Temazepam (Restoril) 15 mg PO HSPRN PRN PRN Reason: Insomnia
[2017-05-08] MEDS: HumaLOG 300 UNITS/3 ML VIAL SC PRN (14:35)
[2017-05-09] MEDS: Piperacillin/Tazobactam 4.5 GM in Sodium Chloride 0.9% 100 ML IVPB SCH ×3 (00:52→20:14)
[2017-05-09] MEDS: Vancomycin HCl 1.25 GM in Sodium Chloride 0.9% 250 ML 250 ML IVPB SCH ×2 (05:06→17:27)
[2017-05-09] MEDS: Sodium Chloride 0.9% 1,000 ML IV SCH (08:15)
[2017-05-09] MEDS: Famotidine 20 MG TAB PO SCH ×2 (08:31→20:14)
[2017-05-09] MEDS: Enoxaparin Sodium 40 MG/0.4 ML SYRINGE SC SCH (08:32)
[2017-05-09] MEDS: glyBURIDE 5 MG TAB PO SCH (08:32)
[2017-05-09] MEDS: HumaLOG 300 UNITS/3 ML VIAL SC PRN ×2 (08:35→11:28)
[2017-05-09] MEDS: HYDROcodone/Acetaminophen 5/325 mg Tablet PO PRN ×2 (08:41→17:30)
[2017-05-09 09:15] LABS: #Eosinphils 0.2 thou/uL (0.0-0.7); #Lymphocytes 2.6 thou/uL (1.20-3.40); #Monocytes 0.9 thou/uL (0.11-0.59); #Neutrophils 8.3 thou/uL (1.40-6.50); %Basophils 0.4 % (0.0-1.0); %Eosinophils 1.6 % (0.0-10.0); %Lymphocytes 21.6 % (21.0-51.0); %Monocytes 7.2 % (0.0-10.0); Hematocrit 31.2 % (36.0-47.0); Mean Platelet Volume 7.5 fL (7.4-10.4); Red Blood Cell (RBC) Count 3.37 mill/uL (4.20-5.40)
[2017-05-09 09:31] LABS: Anion Gap 8 mmol/L (10-20); BUN (Urea Nitrogen) 4 mg/dL (7.0-18.7); Calc. Creatinine Clearance 141 mL/min (70-130); Calcium 8.2 mg/dL (7.8-10.44); Carbon Dioxide 27 mmol/L (22-29); Chloride 106 mmol/L (98-107); Estimated GFR-MDRD Greater than 90
--- NOTE | 2017-05-09 15:03 | PDOC.PN ---
- Subjective Encounter Start Date: 05/09/17 Encounter Start Time: 12:00 Subjective: is feeling better, still has lot of drainage from her dressing on leg - Objective Resuscitation Status: Resuscitation Status FULL:Full Resuscitation MAR Reviewed: Yes Vital Signs & Weight: Vital Signs (12 hours) Temp Pulse Resp BP Pulse Ox 05/09/17 08:00 98.3 F 83 16 138/85 90 L Weight Admit Weight 154 lb 4.8 oz Weight 154 lb 4.8 oz I&O: 05/08/17 05/09/17 05/10/17 06:59 06:59 06:59 Intake Total 3500 4400 200 Balance 3500 4400 200 Result Diagrams: 05/09/17 09:04 05/09/17 09:04 Additional Labs: Accuchecks 05/09/17 05/09/17 05/08/17 11:25 05:06 16:15 POC Glucose 150 H 199 H 74 Phys Exam - Physical Examination HEENT: PERRLA, moist MMs Neck: no JVD, supple Respiratory: no wheezing, no rales Cardiovascular: RRR, no significant murmur Gastrointestinal: soft, non-tender, positive bowel sounds Musculoskeletal: pulses present, edema present multiple ulcers over left LE Neurological: non-focal, moves all 4 limbs Psychiatric: A&O x 3 Dx/Plan (1) Cellulitis of left leg Code(s): L03.116 - CELLULITIS OF LEFT LOWER LIMB Status: Acute (2) Sepsis Code(s): A41.9 - SEPSIS, UNSPECIFIED ORGANISM Status: Acute Qualifiers: Sepsis type: sepsis due to unspecified organism Qualified Code(s): A41.9 - Sepsis, unspecified organism (3) DM type 2 (diabetes mellitus, type 2) Status: Chronic Qualifiers: Diabetes mellitus complication status: with hyperglycemia Diabetes mellitus correction insulin use: without terminal operator use Qualified Code(s): E11.65 - Type 2 diabetes mellitus with hyperglycemia - Plan diabetic education by RN -: counselled to eat healthy diabetic diet -: is on vanc and zosyn -: plan is to switch to oral augmentin on dc -: wbc down to 12 for the first time, still needs iv antibiotics/wound care * . Review of Systems - Medications/Allergies Allergies/Adverse Reactions: Allergies Allergy/AdvReac Type Severity Reaction Status Date / Time No Known Allergies Allergy Verified 05/04/17 16:32 Medications: Current Medications Acetaminophen (Tylenol) 650 mg PO Q4H PRN PRN Reason: Headache/Fever or Mild Pain Hydrocodone Bitart/Acetaminophen ([place] 5/325) 1 tab PO Q4H PRN PRN Reason: Moderate Pain (4-6) Last Admin: 05/09/17 08:41 Dose: 1 tab Al Hydroxide/Mg Hydroxide (Maalox) 15 ml PO Q4H PRN PRN Reason: Heartburn or Indigestion Artificial Tears (Tears Naturale) 0 drop EA EYE PRN PRN PRN Reason: Dry Eyes Clonidine HCl (Catapres) 0.1 mg PO Q4H PRN PRN Reason: Systolic BP > 180 Dextrose/Water (Dextrose 50%) 25 gm SLOW IVP PRN PRN PRN Reason: Hypoglycemia Enoxaparin Sodium (Lovenox) 40 mg SC 0900 [facility] Last Admin: 05/09/17 08:32 Dose: 40 mg Famotidine (Pepcid) 20 mg PO BID [facility] Last Admin: 05/09/17 08:31 Dose: 20 mg Glucagon (Glucagon) 1 mg IM PRN PRN PRN Reason: Hypoglycemia Glyburide (Diabeta) 5 mg PO QAM-WM [facility] Last Admin: 05/09/17 08:32 Dose: 5 mg Guaifenesin (Robitussin Sf) 200 mg PO Q4H PRN PRN Reason: Cough Hydralazine HCl (Apresoline) 10 mg SLOW IVP Q4H PRN PRN Reason: Systolic BP > 180 Dextrose/Water (D5w) 1,000 mls @ 0 mls/hr IV .Q0M PRN; As Directed PRN Reason: Hypoglycemia Vancomycin HCl 1.25 gm/ Sodium (Chloride) 250 mls @ 166.667 mls/hr IVPB Q8H [facility] Piperacillin Sod/Tazobactam (Sod 4.5 gm/ Sodium Chloride) 100 mls @ 200 mls/hr IVPB 0400,1200,2000 [facility] Insulin Human Lispro (Humalog) 0 units SC .MODERATE SLIDING SC PRN PRN Reason: Moderate Correctional Scale Last Admin: 05/09/17 11:28 Dose: 2 unit Insulin Human Lispro (Humalog) 0 units SC .BEDTIME SLIDING SC PRN PRN Reason: Bedtime Correctional Scale Last Admin: 05/05/17 20:22 Dose: 2 unit Loperamide HCl (Imodium) 2 mg PO PRN PRN PRN Reason: Diarrhea/Loose Stools Loratadine (Claritin) 10 mg PO DAILYPRN PRN PRN Reason: Sinus Symptoms Magnesium Hydroxide (Milk Of Magnesium) 30 ml PO DAILYPRN PRN PRN Reason: Constipation Metformin HCl (Glucophage) 1,000 mg PO BID-[facility] Last Admin: 05/09/17 08:31 Dose: 1,000 mg Mineral Oil/White Petrolatum (Eucerin Cream) 0 gm TOP BIDPRN PRN PRN Reason: Dry Skin Morphine Sulfate (Morphine Sulfate) 4 mg SLOW IVP Q4H PRN PRN Reason: Severe Pain (7-10) Ondansetron HCl (Zofran Odt) 4 mg PO Q6H PRN PRN Reason: Nausea/Vomiting Ondansetron HCl (Zofran) 4 mg IVP Q6H PRN PRN Reason: Nausea/Vomiting Senna (Senokot) 2 tab PO HSPRN PRN PRN Reason: Constipation Sodium Chloride ([place] Nasal [place] 0.65%) 0 ml EA NARE QIDPRN PRN PRN Reason: Nasal Congestion Temazepam (Restoril) 15 mg PO HSPRN PRN PRN Reason: Insomnia
[2017-05-10] MEDS: Vancomycin HCl 1.25 GM in Sodium Chloride 0.9% 250 ML 250 ML IVPB SCH ×3 (02:19→17:22)
[2017-05-10] MEDS: HYDROcodone/Acetaminophen 5/325 mg Tablet PO PRN ×2 (02:25→20:09)
[2017-05-10] MEDS: Piperacillin/Tazobactam 4.5 GM in Sodium Chloride 0.9% 100 ML IVPB SCH ×3 (04:13→20:08)
[2017-05-10] MEDS: Famotidine 20 MG TAB PO SCH ×2 (07:43→20:08)
[2017-05-10] MEDS: glyBURIDE 5 MG TAB PO SCH (07:43)
[2017-05-10] MEDS: Enoxaparin Sodium 40 MG/0.4 ML SYRINGE SC SCH (07:44)
[2017-05-10] MEDS: HumaLOG 300 UNITS/3 ML VIAL SC PRN ×2 (11:39→17:22)
--- NOTE | 2017-05-10 11:54 | PDOC.PN ---
- Subjective Encounter Start Date: 05/10/17 Encounter Start Time: 11:20 Subjective: no pain in her leg -: swelling is receding in left leg -: there is drainage from ulcers in left leg - Objective Resuscitation Status: Resuscitation Status FULL:Full Resuscitation MAR Reviewed: Yes Vital Signs & Weight: Vital Signs (12 hours) Temp Pulse Resp BP Pulse Ox 05/10/17 08:00 98 F 82 16 05/10/17 07:08 98 F 82 16 135/80 94 L Weight Admit Weight 154 lb 4.8 oz Weight 154 lb 4.8 oz I&O: 05/09/17 05/10/17 05/11/17 06:59 06:59 06:59 Intake Total 4400 3180 200 Balance 4400 3180 200 Result Diagrams: 05/09/17 09:04 05/09/17 09:04 Additional Labs: Accuchecks 05/10/17 05/10/17 05/09/17 10:49 03:58 21:09 POC Glucose 206 H 147 H 160 H 05/09/17 16:32 POC Glucose 142 H Phys Exam - Physical Examination HEENT: PERRLA, moist MMs Neck: no JVD, supple Respiratory: no wheezing, no rales Cardiovascular: RRR, no significant murmur Gastrointestinal: soft, non-tender, positive bowel sounds Musculoskeletal: pulses present multiple ulcers left leg with purulence Neurological: non-focal, moves all 4 limbs Psychiatric: A&O x 3 Dx/Plan (1) Cellulitis of left leg Code(s): L03.116 - CELLULITIS OF LEFT LOWER LIMB Status: Acute Comment: with multiple ulcers and purulence (2) Sepsis Code(s): A41.9 - SEPSIS, UNSPECIFIED ORGANISM Status: Acute Qualifiers: Sepsis type: sepsis due to unspecified organism Qualified Code(s): A41.9 - Sepsis, unspecified organism (3) DM type 2 (diabetes mellitus, type 2) Status: Chronic Qualifiers: Diabetes mellitus complication status: with hyperglycemia Diabetes mellitus intermediate insulin use: without rat exterminator use Qualified Code(s): E11.65 - Type 2 diabetes mellitus with hyperglycemia - Plan is on vanc and zosyn -: will obtain plain xrays to r/o osteo -: arterial doppler -: needs bedside debridement if she is not willing for surgery -: diabetes is well controlled now * . Review of Systems - Medications/Allergies Allergies/Adverse Reactions: Allergies Allergy/AdvReac Type Severity Reaction Status Date / Time No Known Allergies Allergy Verified 05/04/17 16:32 Medications: Current Medications Acetaminophen (Tylenol) 650 mg PO Q4H PRN PRN Reason: Headache/Fever or Mild Pain Hydrocodone Bitart/Acetaminophen ([place] 5/325) 1 tab PO Q4H PRN PRN Reason: Moderate Pain (4-6) Last Admin: 05/10/17 02:25 Dose: 1 tab Al Hydroxide/Mg Hydroxide (Maalox) 15 ml PO Q4H PRN PRN Reason: Heartburn or Indigestion Artificial Tears (Tears Naturale) 0 drop EA EYE PRN PRN PRN Reason: Dry Eyes Clonidine HCl (Catapres) 0.1 mg PO Q4H PRN PRN Reason: Systolic BP > 180 Dextrose/Water (Dextrose 50%) 25 gm SLOW IVP PRN PRN PRN Reason: Hypoglycemia Enoxaparin Sodium (Lovenox) 40 mg SC 0900 [facility] Last Admin: 05/10/17 07:44 Dose: 40 mg Famotidine (Pepcid) 20 mg PO BID [facility] Last Admin: 05/10/17 07:43 Dose: 20 mg Glucagon (Glucagon) 1 mg IM PRN PRN PRN Reason: Hypoglycemia Glyburide (Diabeta) 5 mg PO QAM-WM [facility] Last Admin: 05/10/17 07:43 Dose: 5 mg Guaifenesin (Robitussin Sf) 200 mg PO Q4H PRN PRN Reason: Cough Hydralazine HCl (Apresoline) 10 mg SLOW IVP Q4H PRN PRN Reason: Systolic BP > 180 Dextrose/Water (D5w) 1,000 mls @ 0 mls/hr IV .Q0M PRN; As Directed PRN Reason: Hypoglycemia Vancomycin HCl 1.25 gm/ Sodium (Chloride) 250 mls @ 166.667 mls/hr IVPB Q8H [facility] Last Admin: 05/10/17 10:05 Dose: 250 mls Piperacillin Sod/Tazobactam (Sod 4.5 gm/ Sodium Chloride) 100 mls @ 200 mls/hr IVPB 0400,1200,2000 [facility] Last Admin: 05/10/17 11:39 Dose: 100 mls Insulin Human Lispro (Humalog) 0 units SC .MODERATE SLIDING SC PRN PRN Reason: Moderate Correctional Scale Last Admin: 05/10/17 11:39 Dose: 4 unit Insulin Human Lispro (Humalog) 0 units SC .BEDTIME SLIDING SC PRN PRN Reason: Bedtime Correctional Scale Last Admin: 05/05/17 20:22 Dose: 2 unit Loperamide HCl (Imodium) 2 mg PO PRN PRN PRN Reason: Diarrhea/Loose Stools Loratadine (Claritin) 10 mg PO DAILYPRN PRN PRN Reason: Sinus Symptoms Magnesium Hydroxide (Milk Of Magnesium) 30 ml PO DAILYPRN PRN PRN Reason: Constipation Metformin HCl (Glucophage) 1,000 mg PO BID-[facility] Last Admin: 05/10/17 07:44 Dose: 1,000 mg Mineral Oil/White Petrolatum (Eucerin Cream) 0 gm TOP BIDPRN PRN PRN Reason: Dry Skin Morphine Sulfate (Morphine Sulfate) 4 mg SLOW IVP Q4H PRN PRN Reason: Severe Pain (7-10) Ondansetron HCl (Zofran Odt) 4 mg PO Q6H PRN PRN Reason: Nausea/Vomiting Ondansetron HCl (Zofran) 4 mg IVP Q6H PRN PRN Reason: Nausea/Vomiting Senna (Senokot) 2 tab PO HSPRN PRN PRN Reason: Constipation Sodium Chloride ([place] Nasal [place] 0.65%) 0 ml EA NARE QIDPRN PRN PRN Reason: Nasal Congestion Temazepam (Restoril) 15 mg PO HSPRN PRN PRN Reason: Insomnia
--- NOTE | 2017-05-10 15:20 | RAD ---
TWO VIEWS LEFT TIBIA AND FIBULA: History: Multiple soft tissue ulcers. Evaluate for osteomyelitis. Comparison: None. FINDINGS: No fracture. No cortical irregularity or periosteal reaction. IMPRESSION: No radiographic evidence of osteomyelitis. POS: ANNIA
--- NOTE | 2017-05-10 16:15 | PRG ---
DATE OF SERVICE: 05/10/2017 Arlyn Nugent is a 46-year-old female patient who I saw last week. 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 She has purulent discharge through punctate areas of the skin. She has bliste ring skin. She has discolored foot. She has discolored lower leg. She has multiple punctate openi ngs in the left leg, ankle to mid presley. At that time, amputation of her left great toe was recommen ded and incision and drainage of her left leg, but she refused. I had signed off. I was asked to s ee her again today, because of progression of her infection in her left leg. Evaluation of her left leg reveals that she has blistering skin over her left great toe and forefoot. She has blistering skin over her left lower extremity, mid lower leg to ankle. She has discoloration and inflammatory changes and thickened skin and redness extending from the mid leg down to the ankle, foot, and left great toe. Blood cultures have been negative. Foot cultures, Klebsiella, Streptococcus. I have spent 45 minutes with the patient with a steward/stewardess third class phone plus another 20 minutes evaluating her problem. She has a severe infection in her lower leg. I have explained per steward/stewardess third class phone to her that she ideally needs amputation of left great toe through the mid to proximal phalanx and the wound let to only heal by secondary intention and incision and drainage of the left leg. It is unl ikely that these are two separate processes, and it is very likely the left great toe infection has seated her foot and leg. She is at risk of limb loss. I have recommended that she undergo amputati on of left great toe and incision and drainage of her left leg. She, however, again refuses amputat ion of left great toe. She does consent after prolonged discussion for incision and drainage of her left leg. I do not think it is very likely that this infectious process extends down to the tendon s, but we will evaluate that. The patient is at high risk for having to have a guillotine amputatio n. Again, she refuses further care despite explanation of her disease process and recommendations. She consents incision and drainage of the left leg abscess at this time and we will perform that un indira general anesthesia. She states that she feels fine, is feeling better every day, and does not w ant anything else done. She is steadfast in her decision, despite my explanation to her repeatedly using the steward/stewardess third class phone.
[2017-05-11] MEDS: Vancomycin HCl 1.25 GM in Sodium Chloride 0.9% 250 ML 250 ML IVPB SCH ×3 (02:48→18:13)
[2017-05-11] MEDS: Enoxaparin Sodium 40 MG/0.4 ML SYRINGE SC SCH (03:20)
[2017-05-11] MEDS: Piperacillin/Tazobactam 4.5 GM in Sodium Chloride 0.9% 100 ML IVPB SCH ×3 (04:30→20:46)
[2017-05-11] MEDS: Lactated Ringer's 1,000 ML IV SCH ×2 (04:30→17:00)
[2017-05-11] MEDS: glyBURIDE 5 MG TAB PO SCH (08:24)
[2017-05-11] MEDS: Famotidine 20 MG TAB PO SCH ×2 (08:32→20:46)
[2017-05-11] MEDS ORDERED: Fentanyl 100 MCG/2 ML VIAL ONE ×2 (14:53→16:29)
--- NOTE | 2017-05-11 14:59 | PDOC.PN ---
- Subjective Encounter Start Date: 05/11/17 Encounter Start Time: 12:15 Subjective: no pain, is amb in hallway - Objective Resuscitation Status: Resuscitation Status FULL:Full Resuscitation MAR Reviewed: Yes Vital Signs & Weight: Vital Signs (12 hours) Temp Pulse Resp BP Pulse Ox 05/11/17 10:52 97.9 F 74 16 149/84 H 96 05/11/17 08:00 98.7 F 82 18 05/11/17 07:20 98.7 F 82 18 149/84 H 94 L Weight Admit Weight 154 lb 4.8 oz Weight 154 lb 4.8 oz I&O: 05/10/17 05/11/17 05/12/17 06:59 06:59 06:59 Intake Total 3180 3350 Balance 3180 3350 Result Diagrams: 05/09/17 09:04 05/09/17 09:04 Additional Labs: Accuchecks 05/11/17 05/11/17 05/10/17 10:52 05:13 20:05 POC Glucose 149 H 156 H 157 H 05/10/17 16:22 POC Glucose 164 H Phys Exam - Physical Examination HEENT: PERRLA, moist MMs Neck: no JVD, supple Respiratory: no wheezing, no rales Cardiovascular: RRR, no significant murmur Gastrointestinal: soft, non-tender, positive bowel sounds Musculoskeletal: edema present left LE has multiple ulcers and toe ulcer/osteo Neurological: non-focal, moves all 4 limbs Psychiatric: A&O x 3 Dx/Plan (1) Cellulitis of left leg Code(s): L03.116 - CELLULITIS OF LEFT LOWER LIMB Status: Acute Comment: with multiple ulcers and purulence (2) Sepsis Code(s): A41.9 - SEPSIS, UNSPECIFIED ORGANISM Status: Acute Qualifiers: Sepsis type: sepsis due to unspecified organism Qualified Code(s): A41.9 - Sepsis, unspecified organism (3) DM type 2 (diabetes mellitus, type 2) Status: Chronic Qualifiers: Diabetes mellitus complication status: with hyperglycemia Diabetes mellitus longterm insulin use: without regional intermodal truck driver use Qualified Code(s): E11.65 - Type 2 diabetes mellitus with hyperglycemia - Plan for debridement today -: dc plan in am on oral antibiotics -: needs to learn to do dressing changes at home -: d/w * . Review of Systems - Medications/Allergies Allergies/Adverse Reactions: Allergies Allergy/AdvReac Type Severity Reaction Status Date / Time No Known Allergies Allergy Verified 05/04/17 16:32 Medications: Current Medications Acetaminophen (Tylenol) 650 mg PO Q4H PRN PRN Reason: Headache/Fever or Mild Pain Hydrocodone Bitart/Acetaminophen ([place] 5/325) 1 tab PO Q4H PRN PRN Reason: Moderate Pain (4-6) Last Admin: 05/10/17 20:09 Dose: 1 tab Al Hydroxide/Mg Hydroxide (Maalox) 15 ml PO Q4H PRN PRN Reason: Heartburn or Indigestion Artificial Tears (Tears Naturale) 0 drop EA EYE PRN PRN PRN Reason: Dry Eyes Clonidine HCl (Catapres) 0.1 mg PO Q4H PRN PRN Reason: Systolic BP > 180 Dextrose/Water (Dextrose 50%) 25 gm SLOW IVP PRN PRN PRN Reason: Hypoglycemia Enoxaparin Sodium (Lovenox) 40 mg SC 0900 [facility] Last Admin: 05/11/17 03:20 Dose: Not Given Famotidine (Pepcid) 20 mg PO BID [facility] Last Admin: 05/11/17 08:32 Dose: 20 mg Glucagon (Glucagon) 1 mg IM PRN PRN PRN Reason: Hypoglycemia Glyburide (Diabeta) 5 mg PO QAM-WM [facility] Last Admin: 05/11/17 08:24 Dose: Not Given Guaifenesin (Robitussin Sf) 200 mg PO Q4H PRN PRN Reason: Cough Hydralazine HCl (Apresoline) 10 mg SLOW IVP Q4H PRN PRN Reason: Systolic BP > 180 Dextrose/Water (D5w) 1,000 mls @ 0 mls/hr IV .Q0M PRN; As Directed PRN Reason: Hypoglycemia Vancomycin HCl 1.25 gm/ Sodium (Chloride) 250 mls @ 166.667 mls/hr IVPB Q8H [facility] Last Admin: 05/11/17 09:42 Dose: 250 mls Piperacillin Sod/Tazobactam (Sod 4.5 gm/ Sodium Chloride) 100 mls @ 200 mls/hr IVPB 0400,1200,2000 [facility] Last Admin: 05/11/17 04:30 Dose: 100 mls Lactated Ringer's (Lactated Ringer's) 1,000 mls @ 100 mls/hr IV .Q10H [facility] Last Admin: 05/11/17 04:30 Dose: 1,000 mls Insulin Human Lispro (Humalog) 0 units SC .MODERATE SLIDING SC PRN PRN Reason: Moderate Correctional Scale Last Admin: 05/10/17 17:22 Dose: 2 unit Insulin Human Lispro (Humalog) 0 units SC .BEDTIME SLIDING SC PRN PRN Reason: Bedtime Correctional Scale Last Admin: 05/05/17 20:22 Dose: 2 unit Loperamide HCl (Imodium) 2 mg PO PRN PRN PRN Reason: Diarrhea/Loose Stools Loratadine (Claritin) 10 mg PO DAILYPRN PRN PRN Reason: Sinus Symptoms Magnesium Hydroxide (Milk Of Magnesium) 30 ml PO DAILYPRN PRN PRN Reason: Constipation Metformin HCl (Glucophage) 1,000 mg PO BID-[facility] Last Admin: 05/11/17 08:24 Dose: Not Given Mineral Oil/White Petrolatum (Eucerin Cream) 0 gm TOP BIDPRN PRN PRN Reason: Dry Skin Morphine Sulfate (Morphine Sulfate) 4 mg SLOW IVP Q4H PRN PRN Reason: Severe Pain (7-10) Ondansetron HCl (Zofran Odt) 4 mg PO Q6H PRN PRN Reason: Nausea/Vomiting Ondansetron HCl (Zofran) 4 mg IVP Q6H PRN PRN Reason: Nausea/Vomiting Senna (Senokot) 2 tab PO HSPRN PRN PRN Reason: Constipation Sodium Chloride ([place] Nasal [place] 0.65%) 0 ml EA NARE QIDPRN PRN PRN Reason: Nasal Congestion Temazepam (Restoril) 15 mg PO HSPRN PRN PRN Reason: Insomnia
[2017-05-11] MEDS ORDERED: ePHEDrine/0.9% NaCl/PF SYRINGE 50 mg/10 ml ONE (15:35)
[2017-05-11] MEDS ORDERED: Propofol 200 MG/20 ML VIAL ONE (15:35)
[2017-05-11] MEDS ORDERED: Ondansetron HCl/PF 4 MG/2 ML Vial ONE (15:35)
[2017-05-11] MEDS ORDERED: Morphine Sulfate 2 MG/ML SYRINGE SLOW IVP PRN (16:21)
[2017-05-11] MEDS ORDERED: Meperidine HCl/PF 25 MG/ML VIAL SLOW IVP PRN (16:21)
[2017-05-11] MEDS ORDERED: Promethazine HCl 25 MG/ML VIAL SLOW IVP PRN (16:21)
[2017-05-11] MEDS ORDERED: Ondansetron HCl/PF 4 MG/2 ML Vial IVP PRN (16:21)
[2017-05-11] MEDS ORDERED: HYDROmorphone 2 MG/ML VIAL SLOW IVP PRN (16:21)
[2017-05-11] MEDS ORDERED: traMADol HCl 50 MG TAB PO PRN (16:56)
[2017-05-11] MEDS ORDERED: Acetaminophen 500 MG TAB PO PRN (16:56)
[2017-05-11] MEDS ORDERED: Ibuprofen 600 MG TAB PO PRN (16:56)
--- NOTE | 2017-05-11 18:04 | OP ---
Bilateral lower extremity arterial Doppler examination was performed on 05/10. Waveforms are tripha sic with good peak area bilaterally throughout the arterial system. Pressure measurements were not performed due to ulcerations on the left leg and ankle. The right dorsalis pedis and posterior tibi al arteries were noncompressible. Digital index on the right was 0.81. ASSESSMENT: Normal waveforms throughout with noncompressible arterial tree on the right and ulcerat ions not allowing for pressure measurements on the left. Further assessment with a CT angiogram or catheter based angiography would be recommended if indicated clinically.
[2017-05-11] MEDS: HumaLOG 300 UNITS/3 ML VIAL SC PRN (20:47)
--- NOTE | 2017-05-11 22:01 | OP ---
DATE OF PROCEDURE: 05/11/2017 PREOPERATIVE DIAGNOSIS: Osteomyelitis, left great toe; purulent discharge from the distal end of th e toe; toenail elevation and impending loss; blistering skin, left great toe, foot, left leg, mid le g to the ankle; severe necrotizing infection, anterior left leg, ankle to mid leg with necrotic skin and subcutaneous tissue and purulent discharge. POSTOPERATIVE DIAGNOSIS: Osteomyelitis, left great toe; purulent discharge from the distal end of t he toe; toenail elevation and impending loss; blistering skin, left great toe, foot, left leg, mid l eg to the ankle; severe necrotizing infection, anterior left leg, ankle to mid leg with necrotic ski n and subcutaneous tissue and purulent discharge; large abscess cavity full of purulent material, mi d anterior left leg. PROCEDURE: Removal of skin, blistering skin from left toe foot and left leg. FINDINGS: Left toenail impending loss; elevated from the underlying osteomyelitis infection; purule nt discharge from the tip of the left toe secondary to the osteomyelitis. Sharp debridement excisio nal resectional #10 blade skin and subcutaneous tissue, anterior left leg ankle to mid leg wound lef t open for healing by secondary intention. Culture submitted to microbiology. Wound care team alex mikaela and placed a wound VAC. SURGEON: Dr. Bin Moya ANESTHESIA: General. Note, I saw the patient last week for osteomyelitis of left toes. She had an infection on the anter ior aspect of left leg ankle to mid leg. At that point, I recommended amputation of left great toe through the proximal phalanx and debridement of the left leg. The patient, however, refused and sta jarret that she would see her at home and he would provide treatment that did not consist surgery or antibiotics. Patient has been seeing the same caregiver at home treating her diabetes. Her hem oglobin A1c was 12. I met with the patient yesterday, 45 minutes spent with her, used a vacuum truck driver phone, explaining that she need to have her left great toe amputation and debridement of the left le g. She, however, again refused amputation of left great toe. After communicating to her, she is ri sking her leg as far as limb loss. She insisted on us leaving her left great toe alone. She did ho wever consent to debridement of the left leg which we are undergoing today. She wants to visit her at home to continue nonsurgical nonantibiotic care. PROCEDURE IN DETAIL: Patient was taken to the operating room where under general anesthesia, left l ower extremity was prepared with Betadine, draped in routine fashion. There was blistering skin on the left great toe, foot and leg. This was removed. The blistering skin was removed from the dista l tip of the left great toe, underlying there was a sinus tract extending down to the osteomyelitic phalanx. There is purulent discharge on compression. The nail bed was raising and with i mpending loss. There was necrotic tissue, anterior left leg, ankle to mid leg. This necrotic skin and subcutaneous tissue and purulent material were debrided sharply with a 10 blade resectional exci sional. It was debrided back down to healthy tissue. A 10 blade was used as a curet. In the mid l eg proximally there was a large abscess cavity full of purulent material and this was sent for cultu re and sensitivity. Wound was pulse irrigated with pulse lavage. Wound care team arrived and place d a wound VAC. film flat inspector prognosis is poor as patient will not allow for adequate treatment of her left leg. She has good hair growth on her left foot and toes indicative of a good blood supply. He r main problem is a severe infection which she will not allow us to adequately treat. I would recom mend discharge home on oral antibiotics and outpatient followup. She is at risk of limb loss due to noncompliance. She was informed of this but insisted on care as described.
[2017-05-12 01:23] LABS: Vancomycin, Random 27.4 ug/mL (See Comment)
[2017-05-12] MEDS ORDERED: Vancomycin HCl 1.25 GM in Sodium Chloride 0.9% 250 ML 250 ML IVPB SCH (02:00)
[2017-05-12] MEDS: Piperacillin/Tazobactam 4.5 GM in Sodium Chloride 0.9% 100 ML IVPB SCH ×3 (03:45→20:07)
[2017-05-12] MEDS: traMADol HCl 50 MG TAB PO PRN ×2 (04:58→12:06)
[2017-05-12] MEDS: HumaLOG 300 UNITS/3 ML VIAL SC PRN (06:07)
[2017-05-12] MEDS: Famotidine 20 MG TAB PO SCH ×2 (09:41→20:06)
[2017-05-12] MEDS: Enoxaparin Sodium 40 MG/0.4 ML SYRINGE SC SCH (09:41)
[2017-05-12] MEDS: glyBURIDE 5 MG TAB PO SCH (09:41)
[2017-05-12] MEDS: Polyethylene Glycol 3350 17 GM Packet PO SCH (09:41)
[2017-05-12] MEDS: Vancomycin HCl 1 GM in Premix Bag 1 BAG IVPB SCH ×2 (09:42→16:35)
--- NOTE | 2017-05-12 15:58 | PDOC.PN ---
- Subjective Encounter Start Date: 05/12/17 Encounter Start Time: 12:30 Subjective: feels better -: no pain - Objective Resuscitation Status: Resuscitation Status FULL:Full Resuscitation MAR Reviewed: Yes Vital Signs & Weight: Vital Signs (12 hours) Temp Pulse Resp BP Pulse Ox 05/12/17 11:43 98.2 F 78 16 160/89 H 94 L 05/12/17 08:00 98.2 F 80 16 93 L 05/12/17 07:10 98.2 F 80 16 133/81 93 L 05/12/17 04:00 98.2 F 84 18 158/92 H 94 L Weight Admit Weight 154 lb 4.8 oz Weight 154 lb 4.8 oz I&O: 05/11/17 05/12/17 05/13/17 06:59 06:59 06:59 Intake Total 3350 2250 240 Output Total 20 Balance 3350 2230 240 Result Diagrams: 05/09/17 09:04 05/09/17 09:04 Additional Labs: Accuchecks 05/12/17 05/12/17 05/11/17 10:55 05:22 20:08 POC Glucose 178 H 261 H 205 H 05/11/17 17:12 POC Glucose 136 H Phys Exam - Physical Examination HEENT: PERRLA, moist MMs Neck: no JVD, supple Respiratory: no wheezing, no rales Cardiovascular: RRR, no significant murmur Gastrointestinal: soft, non-tender, positive bowel sounds Musculoskeletal: pulses present left leg in wound vac Neurological: non-focal, moves all 4 limbs Psychiatric: A&O x 3 Dx/Plan (1) Cellulitis of left leg Code(s): L03.116 - CELLULITIS OF LEFT LOWER LIMB Status: Acute Comment: with multiple ulcers and purulence (2) Sepsis Code(s): A41.9 - SEPSIS, UNSPECIFIED ORGANISM Status: Acute Qualifiers: Sepsis type: sepsis due to unspecified organism Qualified Code(s): A41.9 - Sepsis, unspecified organism (3) DM type 2 (diabetes mellitus, type 2) Status: Chronic Qualifiers: Diabetes mellitus complication status: with hyperglycemia Diabetes mellitus vermin exterminator insulin use: without vermin exterminator use Qualified Code(s): E11.65 - Type 2 diabetes mellitus with hyperglycemia - Plan has had debridement of all ulcers done by yesterday -: wound is in wound vac, is on vanc and zosyn for now -: may dc anytime wound vac is arranged for home use -: augmentin for dc plan -: dm is controlled well on current meds * . Review of Systems - Medications/Allergies Allergies/Adverse Reactions: Allergies Allergy/AdvReac Type Severity Reaction Status Date / Time No Known Allergies Allergy Verified 05/04/17 16:32 Medications: Current Medications Acetaminophen (Tylenol) 650 mg PO Q4H PRN PRN Reason: Headache/Fever or Mild Pain Acetaminophen (Tylenol) 1,000 mg PO Q6H PRN PRN Reason: Mild Pain (1-3) Al Hydroxide/Mg Hydroxide (Maalox) 15 ml PO Q4H PRN PRN Reason: Heartburn or Indigestion Artificial Tears (Tears Naturale) 0 drop EA EYE PRN PRN PRN Reason: Dry Eyes Clonidine HCl (Catapres) 0.1 mg PO Q4H PRN PRN Reason: Systolic BP > 180 Dextrose/Water (Dextrose 50%) 25 gm SLOW IVP PRN PRN PRN Reason: Hypoglycemia Enoxaparin Sodium (Lovenox) 40 mg SC 0900 [facility] Last Admin: 05/12/17 09:41 Dose: 40 mg Famotidine (Pepcid) 20 mg PO BID [facility] Last Admin: 05/12/17 09:41 Dose: 20 mg Glucagon (Glucagon) 1 mg IM PRN PRN PRN Reason: Hypoglycemia Glyburide (Diabeta) 5 mg PO QAM-WM [facility] Last Admin: 05/12/17 09:41 Dose: 5 mg Guaifenesin (Robitussin Sf) 200 mg PO Q4H PRN PRN Reason: Cough Hydralazine HCl (Apresoline) 10 mg SLOW IVP Q4H PRN PRN Reason: Systolic BP > 180 Dextrose/Water (D5w) 1,000 mls @ 0 mls/hr IV .Q0M PRN; As Directed PRN Reason: Hypoglycemia Piperacillin Sod/Tazobactam (Sod 4.5 gm/ Sodium Chloride) 100 mls @ 200 mls/hr IVPB 0400,1200,2000 [facility] Last Admin: 05/12/17 11:55 Dose: 100 mls Vancomycin HCl 1 gm/ Device 200 mls @ 133.333 mls/hr IVPB Q8H [facility] Last Admin: 05/12/17 09:42 Dose: 200 mls Ibuprofen (Motrin) 600 mg PO Q6H PRN PRN Reason: Moderate Pain (4-5) Insulin Human Lispro (Humalog) 0 units SC .MODERATE SLIDING SC PRN PRN Reason: Moderate Correctional Scale Last Admin: 05/12/17 06:07 Dose: 6 unit Insulin Human Lispro (Humalog) 0 units SC .BEDTIME SLIDING SC PRN PRN Reason: Bedtime Correctional Scale Last Admin: 05/11/17 20:47 Dose: 2 unit Loperamide HCl (Imodium) 2 mg PO PRN PRN PRN Reason: Diarrhea/Loose Stools Loratadine (Claritin) 10 mg PO DAILYPRN PRN PRN Reason: Sinus Symptoms Magnesium Hydroxide (Milk Of Magnesium) 30 ml PO DAILYPRN PRN PRN Reason: Constipation Metformin HCl (Glucophage) 1,000 mg PO BID-[facility] Last Admin: 05/12/17 09:41 Dose: 1,000 mg Mineral Oil/White Petrolatum (Eucerin Cream) 0 gm TOP BIDPRN PRN PRN Reason: Dry Skin Ondansetron HCl (Zofran Odt) 4 mg PO Q6H PRN PRN Reason: Nausea/Vomiting Ondansetron HCl (Zofran) 4 mg IVP Q6H PRN PRN Reason: Nausea/Vomiting Polyethylene Glycol (Miralax) 17 gm PO DAILY [facility] Last Admin: 05/12/17 09:41 Dose: 17 gm Senna (Senokot) 2 tab PO HSPRN PRN PRN Reason: Constipation Sodium Chloride ([place] Nasal [place] 0.65%) 0 ml EA NARE QIDPRN PRN PRN Reason: Nasal Congestion Temazepam (Restoril) 15 mg PO HSPRN PRN PRN Reason: Insomnia Tramadol HCl (Ultram) 50 mg PO Q6H PRN PRN Reason: Moderate Pain (6-7) Last Admin: 05/12/17 12:06 Dose: 50 mg Tramadol HCl (Ultram) 100 mg PO Q6H PRN PRN Reason: Severe Pain (8-10) Last Admin: 05/11/17 18:16 Dose: 100 mg
--- NOTE | 2017-05-12 18:06 | PRG ---
DATE OF SERVICE: 05/12/2017 SUBJECTIVE: Ms. Nugent is doing well today. She has a wound VAC on her left leg. As stated previ ously, she has refused treatment of osteomyelitis of her left great toe that was noted in previous o perative note. Yesterday, she had purulent drainage from the tip of the toe and purulent drainage f rom the punctate openings in the skin adjacent. Blistered skin was removed and she is losing her to enail. I have communicated with her using transmission systems operator that the problem in her left leg, ankle and ab ove is related to the infection in her left great toe and that she ideally should have amputation of left great toe to prevent further problems. She, however, refuses. At this point, she has a wound VAC. She has a history of removing her dressings on the floor and I have told her that she is jason g to continue to remove the dressings at home, then we will not send her home with a wound VAC. She states, however, that she will leave the dressings alone. At this point, we are working on [facility] wound VAC and outpatient care which could be done on 2-3 times a week. [facility] or see her in the wound care in the next 2 weeks when they call me. She could be sent home with oral antibiotics for 6 weeks. Cultures obtained from her left leg yesterday leonard led no organisms followed because she had been on antibiotics for sometime, it is likely that she ma y not have any growth. She had cultures obtained from her toe on 05/22/2015 noting Klebsiella and S treptococcus. She could be sent home on Augmentin for probably six weeks. We will treat her osteom yelitis, left great toe which she refuses surgical treatment for. Patient is a high risk of failure in the future problems including limb loss, this has been communicated to her. At this point, I wi ll see her as needed this hospitalization and will see her in outpatient wound clinic in the future.
[2017-05-13] MEDS: Vancomycin HCl 1 GM in Premix Bag 1 BAG IVPB SCH ×2 (01:30→10:07)
[2017-05-13] MEDS: Piperacillin/Tazobactam 4.5 GM in Sodium Chloride 0.9% 100 ML IVPB SCH ×2 (04:07→12:18)
[2017-05-13] MEDS: HumaLOG 300 UNITS/3 ML VIAL SC PRN ×2 (05:52→13:21)
[2017-05-13] MEDS: Famotidine 20 MG TAB PO SCH (08:03)
[2017-05-13] MEDS: glyBURIDE 5 MG TAB PO SCH (08:03)
[2017-05-13] MEDS: Polyethylene Glycol 3350 17 GM Packet PO SCH (08:04)
[2017-05-13] MEDS: Enoxaparin Sodium 40 MG/0.4 ML SYRINGE SC SCH (08:04)
[2017-05-13 09:31] LABS: Vancomycin, Trough 20.3 ug/mL
[2017-05-13] MEDS: traMADol HCl 50 MG TAB PO PRN (10:06)
--- NOTE | 2017-05-13 15:55 | PDOC.PN ---
- Subjective Encounter Start Date: 05/13/17 Encounter Start Time: 07:20 Subjective: feels good, no pain - Objective Resuscitation Status: Resuscitation Status FULL:Full Resuscitation MAR Reviewed: Yes Vital Signs & Weight: Vital Signs (12 hours) Temp Pulse Resp BP Pulse Ox 05/13/17 11:32 98.3 F 86 16 144/84 H 93 L 05/13/17 08:00 97.8 F 78 16 93 L 05/13/17 07:38 97.8 F 78 16 135/90 93 L Weight Admit Weight 154 lb 4.8 oz Weight 154 lb 4.8 oz I&O: 05/12/17 05/13/17 05/14/17 06:59 06:59 06:59 Intake Total 2250 1640 300 Output Total 20 5 Balance 2230 1640 295 Result Diagrams: 05/09/17 09:04 05/09/17 09:04 Additional Labs: Accuchecks 05/13/17 05/13/17 05/12/17 11:32 03:58 19:52 POC Glucose 223 H 203 H 121 H 05/12/17 15:57 POC Glucose 139 H Phys Exam - Physical Examination HEENT: PERRLA, moist MMs Neck: no JVD, supple Respiratory: no wheezing, no rales Cardiovascular: RRR, no significant murmur Gastrointestinal: soft, non-tender, positive bowel sounds Musculoskeletal: no edema, pulses present left leg in dressing and wound vac Neurological: non-focal, moves all 4 limbs Psychiatric: A&O x 3 Dx/Plan (1) Cellulitis of left leg Code(s): L03.116 - CELLULITIS OF LEFT LOWER LIMB Status: Acute Comment: with multiple ulcers and osteomyelitis (2) Sepsis Code(s): A41.9 - SEPSIS, UNSPECIFIED ORGANISM Status: Acute Qualifiers: Sepsis type: sepsis due to unspecified organism Qualified Code(s): A41.9 - Sepsis, unspecified organism (3) DM type 2 (diabetes mellitus, type 2) Status: Chronic Qualifiers: Diabetes mellitus complication status: with hyperglycemia Diabetes mellitus manager intermediate insulin use: without manager intermediate use Qualified Code(s): E11.65 - Type 2 diabetes mellitus with hyperglycemia - Plan augmentin for another 5weeks -: to f/u with pcp in 1 week -: wound vac and wound care has been arranged, may dc anytime * .
[2017-05-13 16:29] VITALS: TEMP 97.2
[2017-05-13 17:23] VITALS: BP 153/90
--- NOTE | 2017-05-13 20:49 | DIS ---
DATE OF ADMISSION: 05/04/2017 DATE OF DISCHARGE: 05/13/2017 DISCHARGE DISPOSITION: Home. PRIMARY DISCHARGE DIAGNOSES: Osteomyelitis of left great toe along with multiple ulcers over the left leg with sepsis, diabetes mellitus type 2, noncompliant with medications and uncontrolled on admission, stable at the time of discharge. PROCEDURES DONE DURING HOSPITALIZATION: The patient has had tibia and fibula x- ray on the left foot, which did not reveal any acute osteomyelitis. The patient has had debridement of the left leg on 05/11/[address] Moya. Had a white count of 15 on the day of admission. Initial serum glucose was 366, hemoglobin A1c was 13.8, triglycerides 346, total cholesterol 231 and LDL 129. test was negative. DISCHARGE MEDICATIONS: Augmentin 875 mg p.o. twice daily for a total of 5 weeks for osteomyelitis, lisinopril 5 mg p.o. daily, glyburide 5 mg p.o. daily, metformin 1000 mg p.o. twice daily. ALLERGIES: No known drug allergies. INPATIENT CONSULTS: Dr. Moya for General Surgery. BRIEF COURSE DURING HOSPITALIZATION: The patient initially got admitted on the with complaints of left foot pain. She had left great toe ulcer with multiple ulcerations over the left presley. The patient has not been taking any medications for her diabetes, although she was diagnosed 10 years ago. She was treating it holistically. Had a white count of 15. Patient essentially was admitted for sepsis with left leg multiple ulcerations with likely osteomyelitis of left great toe. She has had consultation with Dr. Moya for General Surgery. The patient refused to have any procedure done and wanted to be treated medically. She was on IV antibiotics and her ulcerations were getting worse with purulent discharge. Patient finally agreed for just debridement and no amputations. In view of this, she has had the same done on 05/11/[address] Moya. Post-debridement, her wound was placed in wound VAC, especially the presley ulcers. Her left lower extremity edema and erythema is almost completely resolved. Case management consultation was requested for outpatient wound VAC and wound care. This has been accomplished today. She will be shortly discharged home. She has been counseled with regards to medication and dietary compliance. She also needs to follow up with wound care as advised. Please see [facility] [id number]. [facility]
== END 2017-05-13 17:58 | disposition home or self-care (01) | DRG 622 ==
LOC: ERS 14:44 → T4-B 15:51
PROVIDERS: ADMIT Family Medicine; ATTEND Family Medicine
PROC: 0JBP0ZZ Excision of Left Lower Leg Subcutaneous Tissue and Fascia, Open Approach (ICD-10-PCS; principal; 2017-05-11)
PROC: 0HBNXZZ Excision of Left Foot Skin, External Approach (ICD-10-PCS; 2017-05-11)
DX: E11.69 Type 2 diabetes mellitus with other specified complication (principal); A41.9 Sepsis, unspecified organism; M86.8X7 Other osteomyelitis, ankle and foot; I96 Gangrene, not elsewhere classified; E11.622 Type 2 diabetes mellitus with other skin ulcer; L03.116 Cellulitis of left lower limb; L97.928 Non-pressure chronic ulcer of unspecified part of left lower leg with other specified severity; L02.416 Cutaneous abscess of left lower limb; E11.65 Type 2 diabetes mellitus with hyperglycemia; Z53.29 Procedure and treatment not carried out because of patient's decision for other reasons; Z91.14 Patient's other noncompliance with medication regimen; L03.032 Cellulitis of left toe; L62 Nail disorders in diseases classified elsewhere
CPT/HCPCS: 36415; 36416; 80048; 80053; 80202; 83036; 85007; 85025; 85027; 86140; 87070; 87205; 88304; 93005; 93010; 93922; 99285; G8978-GP-CK; G8979-GP-CK; G8980-GP-CK; J0696; J1650; J2405; J2543; J2704; J3010; J3370; J7050

== ENCOUNTER 2017-05-19 10:19 | Outpatient (CLI) | payer MEDICAID, SELFPAY ==
[2017-05-19] MEDS ORDERED: Sodium Chloride 0.9% 15 ML NEB ONE (16:54)
== END 2017-05-19 10:20 | disposition home or self-care (01) ==
LOC: WCC 10:19
PROVIDERS: ATTEND Family Medicine
DX: T81.89XD Other complications of procedures, not elsewhere classified, subsequent encounter (principal)
CPT/HCPCS: 36416; 97605; A4218

== ENCOUNTER 2017-05-23 10:38 | Outpatient (CLI) | payer MEDICAID, SELFPAY | END 2017-05-23 10:39 | disposition home or self-care (01) | LOC: WCC 10:38 | PROVIDERS: ATTEND Family Medicine | DX: T81.89XD Other complications of procedures, not elsewhere classified, subsequent encounter (principal) | CPT/HCPCS: 36416; 97606 ==

== ENCOUNTER 2017-05-26 10:08 | Outpatient (CLI) | payer MEDICAID ==
--- NOTE | 2017-05-26 13:03 | HP ---
DATE OF SERVICE: 05/26/2017 HISTORY OF PRESENT ILLNESS: Ms. Arlyn Nugent is a 46-year-old who presents to the Wound Center for evaluation of a wound of the left anterior lower leg. The patient is Sinhala speaking only. Ms. Leticia herzog underwent removal of necrotic tissue of the left toe, foot and leg on 05/11/[address] Elham Moya. Also at the time of intraoperative debridement, Ms. Nugent underwent wound VAC placemen t. The patient was discharged to home on Augmentin 875/125 p.o. b.i.d. x5 weeks for treatment of os teomyelitis. [facility] from [facility], the patient was referred to the Wound Center for assistance with dressing changes of the wound VAC. PAST MEDICAL HISTORY: Diabetes mellitus. PAST SURGICAL HISTORY: Debridement of left toe, foot and leg/wound VAC placement on 05/11/2017. MEDICATIONS: 1. Augmentin. 2. Herbalife with vitamins. ALLERGIES: No known diagnosed allergies. SOCIAL HISTORY: Social history is negative for current tobacco or ETOH use. FAMILY HISTORY: Family history is negative for diabetes mellitus or coronary artery disease. PHYSICAL EXAMINATION: VITAL SIGNS: Temperature 97.4, pulse 94, respirations 18, blood pressure 168/98. Accu-Chek 258. GENERAL: A 46-year-old female sitting on chair in examination room, in no acute distress. HEENT: Normocephalic, atraumatic. NECK: No nuchal rigidity. CHEST: Clear to auscultation. CARDIAC: Regular rate and rhythm. ABDOMEN: Soft. EXTREMITIES: A wound of the left anterior lower leg is present, which measures approximately 16.5 x 2.8 cm. No purulent drainage is associated with the wound. No erythema of the skin surrounding th e wound is present. No maceration of the skin of the periwound is noted. A dorsalis pedis pulse is palpable on the left. No significant edema of the left foot or lower leg is present on exam today. NEUROLOGIC: Grossly nonfocal. ASSESSMENT AND PLAN: 1. Wound of left anterior lower leg subsequent to intraoperative debridement of left toe, foot and leg on 05/11/[address] Bin Moya. Negative pressure therapy was initiated at the time of norma santino and will be continued with dressing changes of the wound VAC 2 times per week here in the Wound Center. The patient will be seen by Dr. Moya in 1 week, and I will see Yonas Raffi again in two weeks. The patient has been reminded to continue Augmentin as prescribed at the time of discharge. 2. Diabetes mellitus. The patient's Accu-Chek in clinic today is 258. The patient has been told t hat for optimal wound healing, her blood glucoses should remain below 150.
[2017-05-26] MEDS ORDERED: Sodium Chloride 0.9% 15 ML NEB ONE (17:31)
[2017-05-26] MEDS ORDERED: Lidocaine 4% Topical Sol 50 ML BOT ONE (17:31)
== END 2017-05-26 10:09 | disposition home or self-care (01) ==
LOC: WCC 10:08
PROVIDERS: ATTEND Family Medicine
DX: T81.89XD Other complications of procedures, not elsewhere classified, subsequent encounter (principal); E11.9 Type 2 diabetes mellitus without complications
CPT/HCPCS: 36416; 97602; 99203; A4218; G0463; J2001

== ENCOUNTER 2017-06-02 10:51 | Outpatient (CLI) | payer MEDICAID, SELFPAY ==
[2017-06-02] MEDS ORDERED: Lidocaine 4% Topical Sol 50 ML BOT ONE (17:53)
== END 2017-06-02 10:52 | disposition home or self-care (01) ==
LOC: WCC 10:51
PROVIDERS: ATTEND Family Medicine
DX: T81.89XD Other complications of procedures, not elsewhere classified, subsequent encounter (principal)
CPT/HCPCS: 36416; 97605; J2001

== ENCOUNTER 2017-06-06 09:27 | Outpatient (CLI) | payer MEDICAID, SELFPAY ==
[2017-06-06] MEDS ORDERED: Sodium Chloride 0.9% 15 ML NEB ONE (17:11)
== END 2017-06-06 09:28 | disposition home or self-care (01) ==
LOC: WCC 09:27
PROVIDERS: ATTEND Family Medicine
DX: T81.89XD Other complications of procedures, not elsewhere classified, subsequent encounter (principal)
CPT/HCPCS: 36416; 97602; A4218

== ENCOUNTER 2018-04-25 13:51 | Inpatient (IN) | payer MEDICAID, SELFPAY ==
[2018-04-25] MEDS ORDERED: Piperacillin/Tazobactam 4.5 GM VIAL ONE (14:40)
[2018-04-25] MEDS ORDERED: Vancomycin HCl 1 GM in Premix Bag 1 BAG IVPB SCH (14:45)
[2018-04-25] MEDS ORDERED: Acetaminophen 325 MG TAB PO PRN (15:18)
[2018-04-25] MEDS ORDERED: Guaifenesin DM 100-10/5 ML UDCUP PO PRN (15:18)
[2018-04-25] MEDS ORDERED: Dextrose 5% in Water 1,000 ML IV PRN (15:18)
[2018-04-25] MEDS ORDERED: Dextrose 50% Abboject 50 ML SYRINGE SLOW IVP PRN (15:18)
[2018-04-25] MEDS ORDERED: Mag-Al 1200 mg/1200 mg/30 ML UDCUP PO PRN (15:18)
[2018-04-25 16:40] VITALS: BMI 28.2
[2018-04-25] MEDS: Sodium Chloride 0.9% 1,000 ML IV SCH (17:10)
[2018-04-25] MEDS: metFORMIN 500 MG TAB PO SCH (17:14)
[2018-04-25] MEDS: HumaLOG 300 UNITS/3 ML VIAL SC PRN ×2 (17:16→20:51)
[2018-04-25] MEDS: Piperacillin/Tazobactam 3.375 GM in Sodium Chloride 0.9% 100 ML IVPB SCH (17:20)
--- NOTE | 2018-04-25 20:23 | HP ---
REASON FOR ADMISSION: Left foot cellulitis. HISTORY OF PRESENTING ILLNESS: The patient gives history of stepping on a stone barefooted in her [facility] yard. This happened 1 week back. She apparently took the stone out, but the foot started to slow ly swell and became red. This progressively got worse, hence went to [facility] from where she was transferred here. The patient has known history of diabetes and does not take any medications an d takes herbal medications. No complaints of fever. Has no pain in the foot as such. PAST MEDICAL AND SURGICAL HISTORY: Diabetes mellitus type 2, prior history of left leg cellulitis wh ich was treated aggressively medically, this was in 05/2017. CURRENT MEDICATIONS: None. ALLERGIES: No known drug allergies. PERSONAL HISTORY: Does not abuse alcohol or drugs. No history of smoking. FAMILY HISTORY: Mother at the age of 65 years. She has had history of diabetes. Father was effie marvin, at the age of 45 years. REVIEW OF SYSTEMS: The following complete review of systems was negative, unless otherwise mentioned in the HPI or below: Constitutional: Weight loss or gain, ability to conduct usual activities. Skin: Rash, itching. Eyes: Double vision, pain. ENT/Mouth: Nose bleeding, neck stiffness, pain, tenderness. Cardiovascular: Palpitations, dyspnea on exertion, orthopnea. Respiratory: Shortness of breath, wheezing, cough, hemoptysis, fever or night sweats. Gastrointestinal: Poor appetite, abdominal pain, heartburn, nausea, vomiting, constipation, or diarr hea. Genitourinary: Urgency, frequency, dysuria, nocturia. Musculoskeletal: Pain, swelling. Neurologic/Psychiatric: Anxiety, depression. Allergy/Immunologic: Skin rash, bleeding tendency. PHYSICAL EXAMINATION: GENERAL: The patient is a 47-year-old female who is currently not in any acute distress. VITAL SIGNS: Blood pressure 110/76, pulse 98 per minute, respiratory rate 18 per minute, temperature 98.7 degrees Fahrenheit, saturating 94% on room air. NECK: Supple, no elevated JVD. EYES: Extraocular muscles intact. Pupils reacting to light. ORAL CAVITY: Mucous membranes are moist. No exudates or congestion. CARDIOVASCULAR SYSTEM: S1, S2 heard. Regular rhythm. RESPIRATORY SYSTEM: Air entry 1+ bilaterally. No rales or rhonchi. ABDOMEN: Soft, bowel sounds heard. No tenderness, rigidity or guarding. EXTREMITIES: Left heel have a puncture wound with blistering on the plantar aspect which is extendin g into the lateral aspect of the foot. There is erythema of the left foot and ankle and there is krzysztof ma as well. Peripheral pulses are 1+ bilateral, no ischemic ulcerations or gangrene. CENTRAL NERVOUS SYSTEM: No gross focal deficits noted. Patient is alert, awake, oriented well. PSYCHIATRIC SYSTEM: The patient's mood is euthymic. No hallucinations or delusions. IMAGING DATA AND LABORATORY DATA: Left foot 3 view x-ray done shows no acute osseous abnormality, no radiopaque foreign body seen. White count of 20, hemoglobin and hematocrit 13 and 38, platelet coun t 340 with 84% neutrophils. Sodium 132, bicarbonate is 25, BUN 13, creatinine 0.8, serum glucose is 385, lactic acid 0.8. Liver enzymes within normal limits. Albumin is 3.2. CLINICAL IMPRESSION AND PLAN: The patient will be admitted to medical floor for left foot cellulitis with likely a small abscess with blistering. The patient has known history of diabetes and is nonco mpliant with medication and believes in naturopathic treatments. She will be placed on vancomycin an d Zosyn. She will also be gently hydrated with normal saline at 100 mL per hour. We will place her on vancomycin, Zosyn, glyburide and metformin for now. Dr. Moya who has seen her before will be co nsulted as well for General Surgery and Wound Care consultation as well. We will continue to closely monitor her on medical floor. Please note the Mongolian translation service was used for communicatin g with the patient.
[2018-04-25] MEDS: Docusate 100 MG CAP PO SCH (20:50)
[2018-04-26] MEDS: Piperacillin/Tazobactam 3.375 GM in Sodium Chloride 0.9% 100 ML IVPB SCH ×2 (00:32→05:32)
[2018-04-26] MEDS: Sodium Chloride 0.9% 1,000 ML IV SCH ×2 (03:49→17:10)
[2018-04-26] MEDS ORDERED: Vancomycin HCl 1 GM in Premix Bag 1 BAG IVPB SCH (04:00)
[2018-04-26] MEDS: HumaLOG 300 UNITS/3 ML VIAL SC PRN ×4 (05:31→20:01)
[2018-04-26 05:55] LABS: #Eosinphils 0.1 thou/uL (0.0-0.7); #Lymphocytes 2.4 thou/uL (1.20-3.40); #Neutrophils 12.5 thou/uL (1.40-6.50); %Basophils 0.2 % (0.0-1.0); %Eosinophils 0.9 % (0.0-10.0); %Monocytes 6.3 % (0.0-10.0); %Neutrophils 77.6 % (42.0-75.0); Mean Corpuscular HGB CONC 33.9 g/dL (32.0-36.0); Mean Corpuscular Hemoglobin 30.9 pg (27.0-31.0); Mean Corpuscular Volume 91.2 fL (78.0-98.0); Mean Platelet Volume 8.7 fL (7.4-10.4); Platelet Count 352 thou/uL (130-400); Red Blood Cell (RBC) Count 3.55 mill/uL (4.20-5.40); White Blood Cell (WBC) Count 16.1 thou/uL (4.8-10.8)
[2018-04-26 06:14] LABS: Anion Gap 11 mmol/L (10-20); BUN (Urea Nitrogen) 10 mg/dL (7.0-18.7); Calc. Creatinine Clearance 103 mL/min (70-130); Calcium 8.3 mg/dL (7.8-10.44); Carbon Dioxide 23 mmol/L (22-29); Chloride 102 mmol/L (98-107); Estimated GFR-MDRD 85; Glucose 321 mg/dL (70-105); Potassium 4.1 mmol/L (3.5-5.1); Sodium 132 mmol/L (136-145)
[2018-04-26] MEDS ORDERED: Triple Antibiotic Oint 1 GM Packet TOP SCH (07:45)
[2018-04-26] MEDS ORDERED: glyBURIDE 5 MG TAB PO SCH (08:00)
[2018-04-26] MEDS: glyBURIDE 5 MG TAB PO SCH ×2 (08:38→20:00)
[2018-04-26] MEDS: metFORMIN 500 MG TAB PO SCH ×2 (08:38→17:11)
[2018-04-26] MEDS: Enoxaparin Sodium 40 MG/0.4 ML SYRINGE SC SCH (08:39)
[2018-04-26] MEDS: Docusate 100 MG CAP PO SCH ×2 (08:39→20:00)
[2018-04-26] MEDS: Lisinopril 5 MG TAB PO SCH (08:39)
--- NOTE | 2018-04-26 10:27 | CON ---
DATE OF CONSULTATION: 04/26/2018 HISTORY OF PRESENT ILLNESS: Arlyn Nugent is a 47-year-old female who presented to emergency room ye sterday morning before 9:00 a.m. She was placed in her room after 4:00 p.m. I was consulted at 6:00 p.m. The patient has an infection over her right foot. She is a diabetic. She does not have any in surance. She is on food stamps. She lives in [place]. She depends on rastafari support to provid e transportation for her. Her Accu-Cheks have been over 300 in the hospital. The patient states she treats her diabetes with diet control and medical treatment as she has not been able to afford her m edications. The patient was not wearing shoes, walking barefoot, stepped on a rock in the right foot heel area. She developed an infection, presented to the emergency room, had an elevated white count , normal x-rays of her foot. She, as stated above was seen at 8:30 in the morning in the emergency r oom, brought to her room at 4:00 p.m. and I was consulted at 1800. I am seeing her today. The patie nt has on her right heel medially a callus with blistered skin extending toward her medial heel foot area. There is some slight redness. She is on intravenous antibiotics. ALLERGIES: None. TOBACCO: None. ALCOHOL: None. HOME MEDICATIONS: None routinely. In the hospital, she has been started on DiaBeta 5 mg b.i.d., ins ulin aggressive sliding scale, lisinopril 5 mg a day, metformin 1000 mg b.i.d. PAST SURGICAL HISTORY: The patient had extensive soft tissue wound infection left leg treated where I debrided her skin and subcutaneous tissue and this healed secondarily. Otherwise, noncontr ibutory surgical history. PAST MEDICAL HISTORY: Diabetes mellitus, hypertension, noncompliant. SOCIAL HISTORY: Hungarian speaking only, lives in [place] with her family. PHYSICAL EXAMINATION: VITAL SIGNS: Height 5 foot 2, weight 154 pounds, 28 BMI, 98.7, 93, 128/78, respiratory rate 16. HEENT: Unremarkable. LUNGS: Clear to auscultation. CARDIAC: Regular rate and rhythm without murmur or gallop. ABDOMEN: Soft, nontender. EXTREMITIES: Palpable femoral, popliteal pedal pulses. Left foot reveals changes as described. She has a small callus on the weightbearing portion of her heel proximal foot. This has raised the call us tissue with underlying fluid extending to the medial foot. After informed consent bedside this blistered skin was removed underlying serous fluid cultured. The underlying tissues appear to be intact and the black and callus area of her foot where she stepped o n a rock there is no deep sinus tract. White count 16, hemoglobin 11, sodium 132. GFR 85. Accu-Cheks 321 this morning. Calcium 8.3. ASSESSMENT AND PLAN: 1. Noncompliant diabetic with a diabetic infection, left foot, secondary to traumatic stepping on a rock. I have removed the overlying blistered skin, cultured underlying fluid. No further surgical p rocedures are indicated. I would recommend washing this foot with soap and water every day in the sh ower or bath and then applying antibiotic ointment and Telfa, 4x4s, Coban and a postoperative shoe wh ich I have ordered. I have provided an appointment for my office to be seen next . In my op inion, the patient can be discharged home today or tomorrow with oral antibiotics, Cipro and Bactrim for 7 days. I will follow the cultures in my office next week. 2. Noncompliant diabetic, cannot afford medications. Market Relationship Manager will help with her medications. patient continues to have soft tissue problems related to her noncompliant diabetes.
--- NOTE | 2018-04-26 10:34 | PDOC.PN ---
- Subjective Encounter Start Date: 04/26/18 Encounter Start Time: 10:00 Subjective: feels better - Objective Resuscitation Status: Resuscitation Status FULL:Full Resuscitation MAR Reviewed: Yes Vital Signs & Weight: Vital Signs (12 hours) Temp Pulse Resp BP BP Pulse Ox 04/26/18 08:39 93 128/78 04/26/18 08:00 95 04/26/18 07:38 98.7 F 93 16 116/74 95 04/26/18 03:55 98.7 F 92 18 129/77 98 04/26/18 00:08 99.2 F 100 18 158/95 H 97 04/26/18 00:00 99.4 F 106 H 18 149/91 H 99 Weight Weight 154 lb 7 oz I&O: 04/25/18 04/26/18 04/27/18 06:59 06:59 06:59 Intake Total 2417 Balance 2417 Result Diagrams: 04/26/18 05:29 04/26/18 05:29 Additional Labs: Accuchecks 04/26/18 04/25/18 04/25/18 05:25 20:32 16:45 POC Glucose 301 H 273 H 325 H 04/25/18 13:58 POC Glucose 333 H Phys Exam - Physical Examination HEENT: PERRLA, moist MMs Neck: no JVD, supple Respiratory: no wheezing, no rales Cardiovascular: RRR, no significant murmur Gastrointestinal: soft, non-tender, positive bowel sounds Musculoskeletal: pulses present left foot in dressing Neurological: non-focal, moves all 4 limbs Psychiatric: normal affect, A&O x 3 Dx/Plan (1) Cellulitis of left leg Code(s): L03.116 - CELLULITIS OF LEFT LOWER LIMB Status: Acute Comment: left heel blistering with puncture wound and cellulitis (2) Sepsis Code(s): A41.9 - SEPSIS, UNSPECIFIED ORGANISM Status: Acute Qualifiers: Sepsis type: sepsis due to unspecified organism (3) DM type 2 (diabetes mellitus, type 2) Status: Chronic Qualifiers: Diabetes mellitus prison insulin use: without prison use Diabetes mellitus complication status: with hyperglycemia Qualified Code(s): E11.65 - Type 2 diabetes mellitus with hyperglycemia Comment: uncontrolled (4) Non compliance w medication regimen Code(s): Z91.14 - PATIENT'S OTHER NONCOMPLIANCE WITH MEDICATION REGIMEN Status : Acute - Plan add glipizide to metformin -: wbc down to 16k -: had bedside derbridement done by , d/w him this am -: dc plan in am when fingerstick glucose and wbc is better * . Review of Systems - Medications/Allergies Allergies/Adverse Reactions: Allergies Allergy/AdvReac Type Severity Reaction Status Date / Time No Known Allergies Allergy Verified 05/04/17 16:32 Medications: Current Medications Acetaminophen (Tylenol) 650 mg PO Q4H PRN PRN Reason: Headache/Fever or Pain Al Hydroxide/Mg Hydroxide (Maalox) 30 ml PO Q6H PRN PRN Reason: Heartburn or Indigestion Dextrose/Water (Dextrose 50%) 25 gm SLOW IVP PRN PRN PRN Reason: Hypoglycemia Docusate Sodium (Colace) 100 mg PO BID [facility] Last Admin: 04/26/18 08:39 Dose: 100 mg Enoxaparin Sodium (Lovenox) 40 mg SC 0900 [facility] Last Admin: 04/26/18 08:39 Dose: 40 mg Glucagon (Glucagon) 1 mg IM PRN PRN PRN Reason: Hypoglycemia Glyburide (Diabeta) 5 mg PO BID [facility] Last Admin: 04/26/18 08:38 Dose: 5 mg Guaifenesin/Dextromethorphan (Robitussin Dm) 15 ml PO Q4H PRN PRN Reason: Cough Dextrose/Water (D5w) 1,000 mls @ 0 mls/hr IV .Q0M PRN PRN Reason: Hypoglycemia Sodium Chloride (Normal Saline 0.9%) 1,000 mls @ 100 mls/hr IV .Q10H [facility] Stop: 04/27/18 07:17 Last Admin: 04/26/18 03:49 Dose: 1,000 mls Insulin Human Lispro (Humalog) 0 units SC .AGGRESSIVE SLIDING PRN PRN Reason: Aggressive Correctional Scale Last Admin: 04/26/18 05:31 Dose: 11 unit Insulin Human Lispro (Humalog) 0 units SC .BEDTIME SLIDING SC PRN PRN Reason: Bedtime Correctional Scale Last Admin: 04/25/18 20:51 Dose: 3 unit Lisinopril (Zestril) 5 mg PO DAILY [facility] Last Admin: 04/26/18 08:39 Dose: 5 mg Metformin HCl (Glucophage) 1,000 mg PO BID-[facility] Last Admin: 04/26/18 08:38 Dose: 1,000 mg Neomycin/Polymyxin/Bacitracin (Triple Antibiotic) 1 gm [facility] Stop: 04/26/18 12:00 Last Admin: 04/26/18 08:38 Dose: 1 gm
[2018-04-27] MEDS: Sodium Chloride 0.9% 1,000 ML IV SCH (03:24)
[2018-04-27] MEDS: HumaLOG 300 UNITS/3 ML VIAL SC PRN ×3 (05:33→16:45)
[2018-04-27] MEDS: glyBURIDE 5 MG TAB PO SCH (08:19)
[2018-04-27] MEDS: Enoxaparin Sodium 40 MG/0.4 ML SYRINGE SC SCH (08:19)
[2018-04-27] MEDS: metFORMIN 500 MG TAB PO SCH ×2 (08:19→16:45)
[2018-04-27] MEDS: Lisinopril 5 MG TAB PO SCH (08:19)
[2018-04-27] MEDS: Docusate 100 MG CAP PO SCH (08:19)
[2018-04-27] MEDS ORDERED: Triple Antibiotic Oint 1 GM Packet TOP SCH (09:00)
[2018-04-27 09:31] LABS: #Eosinphils 0.1 thou/uL (0.0-0.7); #Lymphocytes 2.4 thou/uL (1.20-3.40); #Monocytes 0.8 thou/uL (0.11-0.59); #Neutrophils 8.3 thou/uL (1.40-6.50); %Basophils 0.4 % (0.0-1.0); %Lymphocytes 20.5 % (21.0-51.0); %Monocytes 6.8 % (0.0-10.0); %Neutrophils 71.3 % (42.0-75.0); Hemoglobin 13.1 g/dL (12.0-16.0); Mean Corpuscular HGB CONC 33.2 g/dL (32.0-36.0); Mean Corpuscular Hemoglobin 30.5 pg (27.0-31.0); Mean Corpuscular Volume 91.9 fL (78.0-98.0); Mean Platelet Volume 8.5 fL (7.4-10.4); Platelet Count 412 thou/uL (130-400); RBC Distribution Width 11.1 % (11.5-14.5); Red Blood Cell (RBC) Count 4.28 mill/uL (4.20-5.40); White Blood Cell (WBC) Count 11.6 thou/uL (4.8-10.8)
[2018-04-27 09:53] LABS: Anion Gap 11 mmol/L (10-20); BUN (Urea Nitrogen) 8 mg/dL (7.0-18.7); Calc. Creatinine Clearance 105 mL/min (70-130); Calcium 9.3 mg/dL (7.8-10.44); Carbon Dioxide 25 mmol/L (22-29); Chloride 104 mmol/L (98-107); Estimated GFR-MDRD 86; Glucose 218 mg/dL (70-105); Potassium 4.2 mmol/L (3.5-5.1); Sodium 136 mmol/L (136-145)
--- NOTE | 2018-04-27 13:36 | PDOC.PN ---
- Subjective Encounter Start Date: 04/27/18 Encounter Start Time: 09:30 Subjective: no new complaints -: feels better, is amb in room - Objective Resuscitation Status: Resuscitation Status FULL:Full Resuscitation MAR Reviewed: Yes Vital Signs & Weight: Vital Signs (12 hours) Temp Pulse Resp BP BP Pulse Ox 04/27/18 08:19 97 149/90 H 93 L 04/27/18 07:48 98.6 F 97 18 149/90 H 93 L Weight Admit Weight 154 lb 7 oz Weight 154 lb 7 oz I&O: 04/26/18 04/27/18 04/28/18 06:59 06:59 06:59 Intake Total 2417 3710 Balance 2417 3710 Result Diagrams: 04/27/18 09:09 04/27/18 09:09 Additional Labs: Accuchecks 04/27/18 04/27/18 04/26/18 11:40 04:44 19:27 POC Glucose 251 H 369 H 204 H 04/26/18 15:38 POC Glucose 257 H Phys Exam - Physical Examination HEENT: PERRLA, moist MMs Neck: no JVD, supple Respiratory: no wheezing, no rales Cardiovascular: RRR, no significant murmur Gastrointestinal: soft, non-tender, positive bowel sounds Musculoskeletal: pulses present left heel in dressing Neurological: non-focal, moves all 4 limbs Psychiatric: normal affect, A&O x 3 Dx/Plan (1) Cellulitis of left leg Code(s): L03.116 - CELLULITIS OF LEFT LOWER LIMB Status: Acute Comment: left heel blistering with puncture wound and cellulitis (2) Sepsis Code(s): A41.9 - SEPSIS, UNSPECIFIED ORGANISM Status: Resolved Qualifiers: Sepsis type: sepsis due to unspecified organism (3) DM type 2 (diabetes mellitus, type 2) Status: Chronic Qualifiers: Diabetes mellitus technical maintenance specialist insulin use: without technical maintenance specialist use Diabetes mellitus complication status: with hyperglycemia Qualified Code(s): E11.65 - Type 2 diabetes mellitus with hyperglycemia Comment: uncontrolled (4) Non compliance w medication regimen Code(s): Z91.14 - PATIENT'S OTHER NONCOMPLIANCE WITH MEDICATION REGIMEN Status : Acute - Plan hemostable -: dc pt home -: cm will try to help with outpt meds if possible -: wound care per 's adv (cleans then apply triple antibiotic cream) -: counselled reg med and dietary compliance * .
[2018-04-27 17:36] VITALS: BP 155/92; TEMP 98.4
--- NOTE | 2018-04-28 00:03 | DIS ---
DATE OF ADMISSION: 04/25/2018 DATE OF DISCHARGE: 04/27/2018 DISCHARGE DISPOSITION: To home. PRIMARY DISCHARGE DIAGNOSES: Left heel puncture wound with cellulitis and sepsis, resolving; diabete s mellitus type 2, uncontrolled due to noncompliance with medication. PROCEDURES DONE DURING HOSPITALIZATION: The patient has had foot x-ray done, which did not reveal an y foreign body. No acute osseous abnormality was seen. Had an initial white count of 20 with discha rge numbers of 11. Initial serum sugar was 385. DISCHARGE MEDICATIONS: Glyburide 5 mg p.o. twice daily, lisinopril 5 mg daily, metformin 1000 mg p.o . twice daily. ALLERGIES: No known drug allergies. INPATIENT CONSULT: Dr. Moya for General Surgery. DISCHARGE PLAN: The patient to check fingerstick glucose twice daily for a period of 10 days and rec ord the same to follow up with primary care physician for changes in her medication. BRIEF COURSE DURING HOSPITALIZATION: The patient initially came to ER with history of stepping on a stone barefooted in her backyard. She had progressive swelling and redness on her heel and ankle are a. The patient is a known diabetic and has not been taking any medications towards the same. She aiken s had prior episode of similar cellulitis with the patient being counseled to take medications, and h ad not been doing so for her diabetes. She was essentially admitted for cellulitis of the left heel. There was a blister, which was deroofed. She was evaluated by Dr. Moya. She was placed on metfo rmin and glyburide for ease of administration at home and financial access for buying the same. She was counseled with regards to dietary and medication compliance. She needs to clean the wound with s oap and water and apply triple-antibiotic cream as suggested by Dr. Moya. She is hemodynamically s table and will be shortly discharged home. Please see a [id number] documentation on [facility] for t he day of discharge.
[2018-04-28] MEDS ORDERED: Triple Antibiotic Ointment 30 GM TUBE TOP SCH (09:00)
== END 2018-04-27 20:33 | disposition home or self-care (01) | DRG 872 ==
LOC: ERS 13:51 → T4-B 16:35
PROVIDERS: ADMIT Internal Medicine; ATTEND Internal Medicine
PROC: 0HBNXZZ Excision of Left Foot Skin, External Approach (ICD-10-PCS; principal; 2018-04-26)
DX: A41.9 Sepsis, unspecified organism (principal); L03.116 Cellulitis of left lower limb; L02.612 Cutaneous abscess of left foot; E11.65 Type 2 diabetes mellitus with hyperglycemia; Z91.14 Patient's other noncompliance with medication regimen; S91.332A Puncture wound without foreign body, left foot, initial encounter
CPT/HCPCS: 36415; 36416; 80048; 85025; 87070; 87077; 87205; 94760; 96365; 96367; J1650; J2543; J3370; J7050